=== PATIENT | female | born 1965 | race Caucasian/White ===

== ENCOUNTER 2020-08-17 09:47 | Outpatient (REF) | payer OTHER, SELFPAY ==
[2020-08-17 11:03] LABS: MANUAL DIFF FLAG NO
[2020-08-17 11:10] LABS: Basophils Percent Auto 0.4 % (0-2); Eosinophils Absolute Auto 0.1 X10*3/uL (0.0-0.4); Eosinophils Percent Auto 1.9 % (0-4); Hematocrit 37.2 % (37-47); Hemoglobin 11.3 g/dl (12.0-16.0); Imm Gran Abs Auto 0.02 X10*3/uL (0.00-0.03); Imm Gran Pct Auto 0.3 % (0.0-0.4); Lymphocytes Absolute Auto 2.3 X10*3/uL (1.2-4.9); Mean Corpuscular HGB Conc 30.4 g/dl (31.0-35.0); Mean Corpuscular Hemoglobin 23.1 pg (27.0-33.0); Mean Corpuscular Volume 76.1 fL (80-98); Mean Platelet Volume 10.8 fL (9.4-12.3); Monocytes Absolute Auto 0.4 X10*3/uL (0.1-1.2); Monocytes Percent Auto 5.2 % (2-11); Neutrophils Absolute Auto 4.1 X10*3/uL (2.0-8.3); Neutrophils Percent Auto 59.2 % (45-73); Platelet Count 259 X10*3/uL (160-400); Red Blood Count 4.89 X10*6/uL (4.20-5.50); Red Cell Distribution Width 16.1 % (11.0-16.0)
[2020-08-17 11:33] LABS: Alanine Aminotransferase 28 U/L (0-31); Alkaline Phosphatase 127 U/L (39-117); Anion Gap 11 (12-20); Aspartate Amino Transferase 33 U/L (5-31); Bilirubin Total 0.7 mg/dL (0.0-1.0); Blood Urea Nitrogen 10 mg/dL (9-16); Calcium 8.9 mg/dL (8.4-10.2); Carbon Dioxide 26 mmol/L (22-29); Chloride 103 mmol/L (96-108); Cholesterol 165 mg/dL; Estimated Glomerular Filt Rate > 60; Glucose Fasting 228 mg/dL (60-99); HDL Cholesterol 50 mg/dL; LDL Cholesterol Calculated 100 mg/dl; Potassium 4.3 mmol/L (3.3-5.1); Sodium 136 mmol/L (135-145); Total Protein 7.4 g/dL (6.5-8.0); Triglycerides 76 mg/dL
[2020-08-17 11:56] LABS: Vitamin D 25-OH Total 52.4 ng/mL (>30)
[2020-08-17 12:05] LABS: Free T4 (Free Thyroxine) 1.01 ng/dL (0.71-1.85); Thyroid Stimulating Hormone 1.32 uIU/mL (0.32-4.0)
[2020-08-17 16:41] LABS: Estimated Average Glucose 232 mg/dL; Hemoglobin A1c % 9.7 %
[2020-08-18 05:17] LABS: Thyroid Peroxidase Antibodies 2 IU/mL (<9)
== END 2020-08-17 09:48 | disposition home or self-care (01) ==
LOC: HO.HMGCLDS 09:47
PROVIDERS: PCP Internal Medicine; Visit Provider Internal Medicine
DX: Z00.01 Encounter for general adult medical examination with abnormal findings (principal); E03.9 Hypothyroidism, unspecified; E04.1 Nontoxic single thyroid nodule; E55.9 Vitamin D deficiency, unspecified; E04.2 Nontoxic multinodular goiter; R73.01 Impaired fasting glucose; Z78.0 Asymptomatic menopausal state
CPT/HCPCS: 36415; 80053; 80061; 82306; 83036; 84439; 84443; 85025; 86376

== ENCOUNTER 2021-08-18 09:28 | Outpatient (REF) | payer OTHER, SELFPAY ==
--- NOTE | ~2021-08-18 | XR_ITS ---
EXAMINATION: XR SHOULDER, RIGHT CLINICAL INFORMATION: Pain. COMPARISON: None TECHNIQUE: AP external rotation, Grashey, scapular Y, and axillary views of the right shoulder. FINDINGS: The glenohumeral joint space is maintained normal. There is mild loss of right AC joint space. No visible acute fracture, dislocation or subluxation seen. Meals XR/XR shoulder RT min 2V IMPRESSION: No degenerative changes right AC joint.
[2021-08-18 12:05] LABS: Alanine Aminotransferase 15 U/L (0-31); Anion Gap 12 (12-20); Aspartate Amino Transferase 18 U/L (5-31); Blood Urea Nitrogen 10 mg/dL (9-16); Calcium 9.2 mg/dL (8.4-10.2); Carbon Dioxide 26 mmol/L (22-29); Chloride 103 mmol/L (96-108); Cholesterol 168 mg/dL; Estimated Glomerular Filt Rate > 60; Glucose Fasting 206 mg/dL (60-99); HDL Cholesterol 57 mg/dL; LDL Cholesterol Calculated 98 mg/dl; Potassium 4.5 mmol/L (3.3-5.1); Sodium 136 mmol/L (135-145); Triglycerides 65 mg/dL
[2021-08-18 12:12] LABS: Creatinine Urine 131.84 mg/dL; Microalbum/Creatinine Ratio Ur 10.6 ug/mg cr
[2021-08-18 12:15] LABS: Free T4 (Free Thyroxine) 0.86 ng/dL (0.71-1.85); Vitamin D 25-OH Total 27.3 ng/mL (>30)
== END 2021-08-18 09:29 | disposition home or self-care (01) ==
LOC: HO.HMGCLDS 09:28
PROVIDERS: PCP Internal Medicine; Visit Provider Internal Medicine
DX: Z00.01 Encounter for general adult medical examination with abnormal findings (principal); E04.2 Nontoxic multinodular goiter; E11.65 Type 2 diabetes mellitus with hyperglycemia; E55.9 Vitamin D deficiency, unspecified; I10 Essential (primary) hypertension; E03.9 Hypothyroidism, unspecified; M25.511 Pain in right shoulder
CPT/HCPCS: 36415; 73030; 80048; 80061; 82043; 82306; 84439; 84443; 84450; 84460

== ENCOUNTER → 2021-09-28 07:24 | Outpatient (REF) | payer OTHER, SELFPAY ==
--- NOTE | 2021-09-28 07:27 | CA_ITS ---
Transthoracic Echocardiogram Patient (Last, First, Middle): Beatrice Zaidi M Gender: Female Date of : 1965 Age: 56 Procedure Date: 09/28/2021 Procedure Type: Transthoracic Echocardiogram Location: OP Height: 165.1 cm Weight: 85.73 kg BSA: 1.93 m2 Heart Rate: bpm BP: 135 / 85 mmHg [id number] Consultant: VH/OT Referring MD: Betty Cuenca MD Symptoms: R01.1 - Cardiac murmur, unspecified Study Quality: Fair ECG Rhythm: Sinus Conclusions: - The left ventricular systolic function is normal. The calculated ejection fraction is 65% by biplane method. - No obvious valvular pathology seen on this study. Findings Left Ventricle Normal left ventricular cavity size. There is mildly increased left ventricular wall thickness. The left ventricular systolic function is normal. The calculated ejection fraction is 65% by biplane method. There is no evidence of regional wall motion abnormalities. Diastolic function is normal for age. Right Ventricle Normal right ventricular cavity size and systolic function. Atria Both atria are normal in size. Aortic Valve There is a normal trileaflet aortic valve. There is no aortic valve stenosis. There is no aortic valve regurgitation. Mitral Valve The mitral valve appears normal. There is trace mitral valve regurgitation. There is no mitral valve stenosis. Pulmonic Valve The pulmonic valve was not well visualized. Tricuspid Valve There is trace tricuspid valve regurgitation. The pulmonary artery systolic pressure is normal. Great Vessels The aortic annulus, sinuses of valsalva, and asc aorta are normal in size. Venous The inferior vena cava is normal in size and collapses greater than 50% with inspiration. Pericardium/Pleural There is a trivial pericardial effusion. Prior Study Comparison No significant change compared to prior study dated: 07/01/2014. Recommendations, Care & Conclusions No obvious valvular pathology seen on this study. Measurements 2D Linear Measurements IVSd: 1.27 0.6-0.9/0.6-1.0 cm LVIDd: 3.90 3.9-5.3/4.2-5.9 cm LVIDd Index: 2.02 2.4-3.2/2.2-3.1 cm/m2 LVIDs: 2.58 2.0-3.6 cm LVPWd: 1.22 0.7-1.1 cm LA Diam: 3.60 2.7-3.8/3.0-4.0 cm LAIDs Index: 1.87 1.5-2.3 cm/m2 LV Mass: 209.66 67-162/88-224 g LV Mass Index: 108.63 43-95/49-115 g/m2 LVOT Diam: 2.10 3.0+(-)1.3 cm 2D Systolic Function EF 4C: 64.20 >55% EF 2C: 66.00 >55% EF BiP: 65.00 >55% Mitral Valve MV Pk E: 1.04 MV PK A: 0.81 MV Decel Time: 252.00 E/A: 1.30 E'Lateral: 6.64 E'Medial: 6.31 E/E' Med: 16.50 E/E' Lat: 15.70 PHT: 74.00 MVA PHT: 2.97 Decel Villalba: 4.11 Aortic Valve AoV Pk Ayush: 1.81 AoV Mn Ayush: 1.19 AoV VTI: 0.39 AoV Pk Grad: 13.00 Aov Mn Grad: 7.00 KIZZY Cont.VTI: 2.75 LVOT LVOT Pk Ayush: 1.38 LVOT Mn Ayush: 0.88 LVOT VTI: 0.31 LVOT Pk Grad: 8.00 LVOT Mn Grad: 4.00 LVOT Diam: 2.10 LVOT Area: 3.46 Diastolic Function MV Pk E: 1.04 MV Pk A: 0.81 E/A: 1.30 E'Medial: 6.31 E/E' Med: 16.50 E' Laterial: 6.64 E/E' Lat: 15.70 Right Ventricle TAPSE (mm): 24.00 TVS' Ayush: 11.00 Tricuspid Valve TR Pk Ayush: 2.22 TR Pk Grad: 20.00 Great Vessels Aorta Sinus of Valsalva: 30.00 2.0-3.5 cm Ao Asc: 3.30 2.1-3.4 cm Ao Arch: 3.00 Pulmonary Valve PV Pk Ayush: 0.98 Peak PV Grad: 4.00 Updated in Other Vendor System with Status of Final Grant Mendoza MD electronically signed on 09/29/2021 11:48:24 AM with status of Final
== END ==
LOC: HO.CARD 07:24
PROVIDERS: PCP Internal Medicine; Visit Provider Internal Medicine
DX: R01.1 Cardiac murmur, unspecified (principal)
CPT/HCPCS: 93306

== ENCOUNTER → 2021-11-17 07:49 | Outpatient (BNVA) | payer OTHER, SELFPAY | PROVIDERS: PCP Internal Medicine; Visit Provider Internal Medicine Endocrinology, Diabetes & Metabolism | DX: E11.65 Type 2 diabetes mellitus with hyperglycemia (principal); E04.2 Nontoxic multinodular goiter | CPT/HCPCS: 82947; 83036 ==

== ENCOUNTER → 2022-01-11 09:26 | Outpatient (BNVA) | payer OTHER, SELFPAY | PROVIDERS: PCP Internal Medicine; Visit Provider Dietitian, Registered | DX: E11.65 Type 2 diabetes mellitus with hyperglycemia (principal) | CPT/HCPCS: 97802 ==

== ENCOUNTER 2022-02-17 12:51 | Outpatient (REF) | payer OTHER, SELFPAY ==
--- NOTE | ~2022-02-17 | US_ITS ---
EXAMINATION: US THYROID CLINICAL INFORMATION: Nontoxic single thyroid nodule. COMPARISON: Thyroid ultrasound 01/16/2018 and 12/29/2016. Ultrasound-guided thyroid biopsy 01/13/2017. TECHNIQUE: Linear transducer grayscale and color Doppler examination with attention to the region of the thyroid. FINDINGS: SIZE: Measurements of the solitary right lobe and nodules are given in sagittal, anteroposterior and transverse dimensions respectively. Right Thyroid Lobe: 5.4 x 1.5 x 1.5 cm, volume 6.0 mL. Previously 4.6 x 1.4 x 1.4 cm, volume 4.7 mL. Parenchyma: The gland echotexture is homogeneous. Thyroid vascularity is normal. Left Thyroid Lobe: Surgically absent. Isthmus: 0.5 cm in maximum AP dimension. Previously 0.4 cm. Estimated total number of nodules greater than or equal to 1 cm: 0. Resort Manager nodules are described as follows: 1. Location: Right mid pole. Size: 0.7 x 0.4 x 0.7 cm, volume 0.11 mL. Previously: 0.5 x 0.4 x 0.5 cm, volume 0.05 mL. Nodule characteristics: Composition: Cystic(0). ACR TI-RADS total points: 0 ACR TI-RADS category: 1 LEFT THYROIDECTOMY BED: NODES: No lymphadenopathy is seen in the tissue surrounding the thyroid gland. US/US thyroid IMPRESSION: Slight interval increase in size in the small solitary right thyroid nodule. The left lobe is surgically absent. ACR TI-RADS RECOMMENDATION REFERENCE: Ultrasound-guided fine-needle aspiration, followup ultrasound, no further follow up. * TR1 (0 point) and TR 2 (2 points): No FNA or follow up * TR3 (3 points): FNA if more than or equal to 2.5 cm in maximum dimension, followup ultrasound in 1, 3 and 5 years if 1.5 to 2.4 cm in maximum dimension. * TR4 (4-6 points): FNA if more than or equal to 1.5 cm in maximum dimension, followup ultrasound in 1, 2, 3 and 5 years if 1 to 1.4 cm in maximum dimension. * TR5 (more than or equal to 7 points): FNA if more than or equal to 1 cm in maximum dimension, followup ultrasound every year for 5 years if 0.5 to 0.9 cm in maximum dimension. * TR3, TR4 or TR5 nodules that are below the size threshold for follow up receive no follow up.
== END 2022-02-17 12:52 | disposition home or self-care (01) ==
LOC: HO.HMGCX 12:51
PROVIDERS: PCP Internal Medicine; Visit Provider Internal Medicine
DX: E04.1 Nontoxic single thyroid nodule (principal)
CPT/HCPCS: 76536

== ENCOUNTER 2024-02-23 15:00 | Outpatient (AMB) | payer OTHER, SELFPAY ==
--- NOTE | 2024-02-23 15:05 | MHC.OFFVIS ---
Vital Signs 02/23/24 15:10 Height 5 ft 5 in Weight 202 lb 9.677 oz BMI 33.7 BP 150/90 H Blood Pressure Location Rt brachial Position Sitting Pulse 79 Pulse Source Pulse Oximeter Intake Visit Reasons: T2DM/LVM Intake Note: New patient present today for Diabetes Mellitus. Last Diabetic Eye exam: approx 4 months ago, patient has yearly exam. Last Podiatry Visit: Does not see a Entry Level Civil Engineer Random Glucose: 171 mg/dl HgA1C: 9.0% 02/14/2024 Senior Information Security Analyst Required: No Accompanied by: Self / Same As Patient Allergies adhesive tape Allergy (Verified 02/23/24 15:12) Blister amoxicillin Adverse Reaction (Unknown, Verified 02/23/24 15:12) Abdominal Pain HPI Comments Details: This is a 58-year-old female with a past medical history of type 2 diabetes, hypertension, heart murmur, multinodular thyroid, Narvaez's esophagus, anxiety and insomnia presenting for diabetic management. She was last seen in the endocrinology department in [address] Daniel. Hemoglobin a1c 9% 02/14/2024 POC 171 She needs a new glucometer sent to the pharmacy. When she checks her BG they are in the 170s. She would like CGM. 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 Current medication regimen: previously Metformin 1000 mg twice daily. She self discontinued this. She was concerned about fdc effects and side effects she read about online. She was able to keep her diabetes under control with diet and exercise for some time. She maintains the same lifestyle and is frustrated she cannot lose weight and BGs are elevated. She has attempted a low carbohydrate diet with biking and walking for more than 6 months, and she has been unable to lose weight. Diet: Breakfast-whole wheat test with peanut butter and banana Lunch-chicken on salad, wrap with chicken Dinner-protein and vegetables Snacks/desserts: berries, snap peas Exercise: bikes and walks Occasional alcohol nonsmoker Hypoglycemia symptoms: denies Hyperglycemia symptoms: polydipsia Eye exam: up to date- Dr. Chaudhary in [place] Microvascular complications: none Macrovascular complications: none Elevated blood pressure today-no history of hypertension medications. ROS: Eyes: No vision changes, blurry vision, double vision Respiratory: No shortness of breath Cardiovascular: No chest pain Gastrointestinal: No anorexia, nausea, vomiting or diarrhea. No abdominal pain Neurologic: No headache, dizziness, syncope, unilateral weakness, ataxia, numbness or tingling in the extremities. Endocrine: No cold or heat intolerance. No polyuria Physical exam: Constitutional: Alert, in no distress. Eyes: Extraocular muscles intact. Neck: Supple, Full range of motion. No lymphadenopathy. No palpable thyroid masses. Respiratory: Clear to auscultation. Cardiovascular: S1 S2 regular. II/ systolic murmur. Right foot: Warm and well perfused. No clubbing, cyanosis or edema. DP pulse 3+. Intact vibratory sensation. Intact sensation to monofilament. Left foot: Warm and well perfused. No clubbing, cyanosis or edema. DP pulse 3+. Intact vibratory sensation. Intact sensation to monofilament. [facility] Medical History (Updated 02/23/24 @ 16:25 by KIRAN Garcia) Plantar fasciitis Heart murmur, systolic Right thyroid nodule Diabetes mellitus with hyperglycemia, without long-term current use of insulin Nontoxic multinodular goiter Thyroid nodule Insomnia Essential hypertension Barretts esophagus Hiatal hernia Vitamin D deficiency Elevated blood pressure reading Sleep difficulties Anxiety Surgical History (Updated 02/23/24 @ 15:13 by Stephanie Og Shoaib) Hx of knee surgery H/O partial thyroidectomy Hx of colonoscopy Hx of inguinal hernia repair History of Family History (Updated 11/17/21 @ 09:02 by ONEIL Tarango) Mother Colon cancer Hypertension Myocardial infarct Mental health disorder Other Thyroid disease Social History Housing: Condominium Alcohol intake: current Patient Tobacco Use Status: Never used Tobacco e-Cigarette/Vaping Use: Never Used service: No Current occupational status: employed Results Reviewed Results Reviewed: Laboratory Tests External labs dated 02/14/2024 TSH 2.0 T4, free 1.19 Creatinine 0.72 Estimated GFR 97 Glucose 170 AST 30 ALT 28 Alk-phos 107 Total cholesterol 165 Triglycerides 69 HDL cholesterol 58 LDL cholesterol 94 Hemoglobin A1c 9% 08/18/21 08/18/21 11/17/21 08:44 09:32 08:31 Creatinine 0.74 Estimated GFR > 60 Hgb A1c (Clinic) 8.3 H 6.9 H Triglycerides 65 Cholesterol 168 LDL Cholesterol, Calc 98 HDL Cholesterol 57 Urine Creatinine 131.84 Urine Microalbumin 14.0 Microalb/Creat Ratio 10.6 Assessment & Plan Assessment & Plan (1) Diabetes mellitus with hyperglycemia, without long-term current use of insulin: Code(s): E11.65 - Type 2 diabetes mellitus with hyperglycemia Category: Medical Qualifiers: Diabetes mellitus type: type 2 Qualified Code(s): E11.65 - Type 2 diabetes mellitus with hyperglycemia (2) Elevated blood pressure reading: Code(s): R03.0 - Elevated blood-pressure reading, without diagnosis of hypertension Category: Medical (3) Obesity: Code(s): E66.9 - Obesity, unspecified Qualifiers: Obesity type: due to excess calories Obesity classification: adult class 1 (BMI 30 - 34.9) Serious obesity comorbidity presence: with serious comorbidity Body mass index: BMI 33.0-33.9 Qualified Code(s): E66.09 - Other obesity due to excess calories; Z68.33 - Body mass index [BMI] 33.0-33.9, adult Plan In summary this is a 58 year old female with poorly controlled type 2 diabetes on no antidiabetic medications currently. She is not comfortable restarting Metformin due to potential adverse effects. Given obesity GLP1 will be of greater benefit to her since she has been unable to lose weight despite more than 6 months of lifestyle modifications. Recent TSH normal. The patient denies contraindications to GLP-1 receptor agonist. We reviewed the FDA preliminary evaluation that has not found evidence that these medications cause suicidal thoughts or actions, but the investigation is ongoing. If the patient develops these symptoms they will stop taking the medication immediately and contact the office. We reviewed more common side effects such as bloating, constipation, nausea and vomiting. We reviewed the administration and dosing schedule. The patient is instructed to continue lifestyle modifications and efforts at weight loss. We discussed how weight loss can cause physiologic changes in the body and that some patients may experience hair thinning/hair loss. Sent fingerstick glucometer and CGM. CGM medically necessary in this diabetic patient since she is unable to consistently monitor finger stick glucose levels during her work day. 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 If glucose readings are not in target range or she is not losing weight she will contact me to send Mounjaro 5 mg after the first month on the medication. We discussed indication for statin in diabetic patients to decrease cardiovascular risk. She declines for now stating she does not like to take medications. Given prescription for home blood pressure montior. Bring readings to next appointment. T/C savannah or arb if BP remains above goal. She will have labs done a few days prior to her next appointment scheduled in 3 months for diabetes. Orders: Orders Hemoglobin A1c 10 Weeks E11.65 - Type 2 diabetes mellitus with hyperglycemia Microalbumin, Random (w Creat) 10 Weeks E11.65 - Type 2 diabetes mellitus with hyperglycemia Medications: New blood-glucose sensor (FreeStyle April 3 Sensor device) apply new sensor every 14 days as directed 2 ea 11RF blood-glucose meter (FreeStyle Lite Meter kit) 3 times a day 1 ea 0RF E11.9 - Type 2 diabetes mellitus without complications tirzepatide (Mounjaro) for 4 weeks 2.5 mg (0.5 mL) subcut QWEEK 2 mL 3RF blood-glucose meter,continuous (FreeStyle April 3 [place]) as directed 1 ea 0RF miscellaneous medical supply (Blood Pressure Cuff) As directed 1 ea 0RF blood sugar diagnostic (FreeStyle Lite Strips) As directed to check glucose up to 3 times daily 100 ea 5RF lancets (FreeStyle Lancets) Use as directed to monitor glucose up to 3 times daily 100 ea 5RF Discontinued metformin Discontinued Reason: Doctor's Order 1,000 mg PO BID 30 tabs 5RF Coding Level of Care Code Est Pt Level 5 (32351) Complex EM visit Add On G2211 Diagnoses Type 2 diabetes mellitus with hyperglycemia, without long-term current use of insulin E11.65 Diabetes mellitus type: type 2 Elevated blood pressure reading R03.0 Class 1 obesity due to excess calories with serious comorbidity and body mass index (BMI) of 33.0 to 33.9 in adult E66.09; Z68.33 Obesity type: due to excess calories Obesity classification: adult class 1 (BMI 30 - 34.9) Serious obesity comorbidity presence: with serious comorbidity Body mass index: BMI 33.0-33.9 Time Spent (min) 55 Comment reviewing chart/labs, direct patient care, completing documentation
[2024-02-23 15:10] VITALS: BP 150/90; PULSE 79; BMI 33.7
[2024-02-23 15:27] LABS: Glucose, Whole Blood 171 mg/dL (60-115)
== END 2024-02-23 16:12 | disposition home or self-care (01) ==
PROVIDERS: PCP Internal Medicine; Visit Provider Physician Assistant Medical
DX: E11.65 Type 2 diabetes mellitus with hyperglycemia (principal); R03.0 Elevated blood-pressure reading, without diagnosis of hypertension; E66.09 Other obesity due to excess calories; Z68.33 Body mass index [BMI] 33.0-33.9, adult
CPT/HCPCS: 99215; 99417

== ENCOUNTER → 2024-02-23 15:00 | Outpatient (BNVA) | payer OTHER, SELFPAY | PROVIDERS: PCP Internal Medicine; Visit Provider Physician Assistant Medical | DX: E11.65 Type 2 diabetes mellitus with hyperglycemia (principal); R03.0 Elevated blood-pressure reading, without diagnosis of hypertension; E66.09 Other obesity due to excess calories; Z68.33 Body mass index [BMI] 33.0-33.9, adult | CPT/HCPCS: 82947 ==

== ENCOUNTER 2024-05-28 15:50 | Outpatient (AMB) | payer OTHER, SELFPAY ==
--- NOTE | 2024-05-28 15:53 | MHC.OFFVIS ---
Vital Signs 05/28/24 15:57 05/28/24 16:40 Height 5 ft 5 in Weight 188 lb 7.924 oz BMI 31.4 BP 154/84 H 142/84 H Blood Pressure Location Lt brachial Position Sitting Pulse 86 Pulse Source Pulse Oximeter Intake Visit Reasons: DM/LVM Intake Note: Patient present today to follow up on Type 2 Diabetes Mellitus. Last Diabetic Eye exam: within the year, has an upcoming appt Aug 2024. Last Podiatry Visit: Does not see a Independent Jeweler Random Glucose: 186 mg/dl HgA1C: 6.7% 05/28/24 Paper Ruler Required: No Accompanied by: Self / Same As Patient Allergies adhesive tape Allergy (Verified 05/28/24 15:58) Blister amoxicillin Adverse Reaction (Unknown, Verified 05/28/24 15:58) Abdominal Pain HPI Comments Details: This is a 59-year-old female with a past medical history of type 2 diabetes, hypertension, heart murmur, multinodular thyroid, Narvaez's esophagus, anxiety and insomnia presenting for diabetic management. Hemoglobin a1c 9% 02/14/2024. Today 05/28/24 it is 6.7%. She's lost 14 pounds since her visit with me in January. We reviewed her April 3 download dated 05/15/2024 to 05/28/2024 CGM active 98% Average glucose 155 GMI 7% Glucose variability 15.3% Target range 85% 0% hypoglycemia 0% above 250 15% 181-250 Current medication regimen:None. Previously took metformin. She self discontinued due to concerns about long-term side effects. Insurance did not cover GLP 1. Patient said she will increase exercise, and she is proud of herself for the dietary changes she made. She says it is all because of the April 3. She calls it ?big brother. Patient does endorse menopausal symptoms including fatigue, disrupted sleep, vaginal dryness, joint aches. She is taking glucosamine chondroitin. She has tried sleep hygiene, hydroxyzine, melatonin and magnesium for sleep without success. Her blood pressure is elevated today though it did improve and I rechecked it. She believes it is due to office hypertension. She lost the prescription for the blood pressure that I gave her. I asked if she has been tested for sleep apnea when she said she snores. She said she was diagnosed with moderate sleep apnea in the past, but she was never treated for it. Denies witnessed apneic episodes. Hypoglycemia symptoms: denies Hyperglycemia symptoms: denies Eye exam: up to date- Dr. Chaudhary in [place] Microvascular complications: none Macrovascular complications: none ROS: Eyes: No vision changes, blurry vision, double vision Respiratory: No shortness of breath Cardiovascular: No chest pain Gastrointestinal: No anorexia, nausea, vomiting or diarrhea. No abdominal pain Neurologic: No headache, dizziness, syncope, unilateral weakness, ataxia, numbness or tingling in the extremities. Endocrine: No cold or heat intolerance. No polyuria Physical exam: Constitutional: Alert, in no distress. Eyes: Extraocular muscles intact. Neck: Supple, Full range of motion. No lymphadenopathy. No palpable thyroid masses. Respiratory: Clear to auscultation. Cardiovascular: S1 S2 regular. II/ systolic murmur. [facility] Medical History (Updated 05/28/24 @ 16:59 by KIRAN Garcia) Controlled type 2 diabetes mellitus Menopausal symptoms Plantar fasciitis Heart murmur, systolic Right thyroid nodule Diabetes mellitus with hyperglycemia, without long-term current use of insulin Nontoxic multinodular goiter Thyroid nodule Insomnia Essential hypertension Barretts esophagus Hiatal hernia Vitamin D deficiency Elevated blood pressure reading Sleep difficulties Anxiety Surgical History Hx of knee surgery H/O partial thyroidectomy Hx of colonoscopy Hx of inguinal hernia repair History of Family History Mother Colon cancer Hypertension Myocardial infarct Mental health disorder Other Thyroid disease Social History Housing: Condominium Alcohol intake: current Patient Tobacco Use Status: Never used Tobacco e-Cigarette/Vaping Use: Never Used service: No Current occupational status: employed Physical Exam Vital Signs: Last Vital Signs Pulse 86 05/28/24 15:57 BP 154/84 H 05/28/24 15:57 BMI result Body Mass Index 31.4 Office Procedures Glucose Monitoring Details 57192 - Glucose monitoring, continuous-physician I&R Procedure code (CPT) selection complete Results AMB Hemoglobin A1c AMB Hemoglobin A1c 6.7 % Last Edit by VIGNESH Garcia on 05/28/24 16:16 Results Reviewed Results Reviewed: Laboratory Last Values Glucose (Clinic) 186 mg/dL (60-115) H 05/28/24 16:04 Assessment & Plan Assessment & Plan (1) Controlled type 2 diabetes mellitus: Code(s): E11.9 - Type 2 diabetes mellitus without complications Category: Medical Qualifiers: 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 I congratulated her success with lifestyle modifications. She attributes this to using a CGM. Eye exam is scheduled. The patient can continue glucosamine chondroitin. Offered appointment with endocrinology MD here to discuss hormone replacement therapy. If she is interested in topical estrogen therapy recommended follow up with Gynecology. Patient defers both at this time. Recommended increasing exercise. Reviewed sleep hygiene. Trial of trazodone 50 mg nightly as needed. Cautioned about side effects. Advised not to drive or operate heavy machinery when taking this medication. I went ahead and ordered a repeat sleep study. If she has sleep apnea I will refer to sleep Medicine. Patient defers Markos or Arb for hypertension. We discussed that untreated sleep apnea and insomnia may be contributing to this. She will monitor readings at home. Given new prescription for blood pressure cuff. Recommended low-sodium diet and continued efforts at weight loss. Avoid excessive alcohol and decrease caffeine consumption. Follow up in 3 months. Orders: Orders AMB Hemoglobin A1c Today E11.65 - Type 2 diabetes mellitus with hyperglycemia AMB Glucose Monitoring Today E11.9 - Type 2 diabetes mellitus without complications Medications: New trazodone 50 mg PO BEDTIME PRN 30 tabs 0RF sleep Refilled miscellaneous medical supply (Blood Pressure Cuff) As directed 1 ea 0RF miscellaneous medical supply (Blood Pressure Cuff) As directed 1 ea 0RF Discontinued hydroxyzine HCl Discontinued Reason: Doctor's Order 10 mg PO BEDTIME PRN 30 tabs 1RF anxiety/ restless sleep Coding Level of Care Code Est Pt Level 5 (06791) Diagnoses Controlled type 2 diabetes mellitus without complication, without long-term current use of insulin E11.9 Diabetes mellitus assisted insulin use: without marine oil terminal superintendent use Diabetes mellitus complication status: without complication Elevated blood pressure reading R03.0 Obesity E66.9 Menopausal symptoms N95.1 CPT Codes Details - CPT: 68295 - Glucose monitoring, continuous-physician I&R ([id number]) Time Spent (min) 47 Comment Chart review, direct patient care, completing documentation
[2024-05-28 15:57] VITALS: BP 154/84; PULSE 86; BMI 31.4
[2024-05-28 16:10] LABS: Glucose, Whole Blood 186 mg/dL (60-115)
[2024-05-28 16:40] VITALS: BP 142/84
== END 2024-05-28 16:46 | disposition home or self-care (01) ==
PROVIDERS: PCP Internal Medicine; Visit Provider Physician Assistant Medical
DX: E11.9 Type 2 diabetes mellitus without complications (principal); R03.0 Elevated blood-pressure reading, without diagnosis of hypertension; E66.9 Obesity, unspecified; N95.1 Menopausal and female climacteric states; E11.65 Type 2 diabetes mellitus with hyperglycemia

== ENCOUNTER → 2024-05-28 15:50 | Outpatient (BNVA) | payer OTHER, SELFPAY | PROVIDERS: PCP Internal Medicine; Visit Provider Physician Assistant Medical | DX: E11.9 Type 2 diabetes mellitus without complications (principal); R03.0 Elevated blood-pressure reading, without diagnosis of hypertension; N95.1 Menopausal and female climacteric states; E66.9 Obesity, unspecified; Z68.31 Body mass index [BMI] 31.0-31.9, adult | CPT/HCPCS: 82947; 83036 ==

== ENCOUNTER → 2024-07-31 16:01 | Outpatient (REF) | payer OTHER, SELFPAY ==
--- OUTSIDE RECORDS SUMMARY | 2024-07-31 17:44 | XMS_ITS | Clinical Summary ---
Author Organization [facility] Address [address] [place] [phone] Phone Care Team Providers Care Operations Manager Assistant Name Role Phone Betty Cuenca MD Primary Care Provider Allergies Active Allergy Reactions Criticality Noted Date Comments Amoxicillin 06/04/2024 Heavy head Latex Hives 06/04/2024 Huge blisters Medications Medication Sig Dispensed Refills Start Date End Date Status omeprazole (PriLOSEC) [address] capsule Take 1 capsule (20 mg total) by mouth 1 (one) time each day. Do not crush or chew. Active fluticasone propionate (FLONASE) 50 mcg/actuation nasal spray Administer 1 spray into each nostril 1 (one) time each day. Shake gently. Before first use, prime pump. After use, clean tip and replace cap. Active loratadine (CLARITIN) 10 mg tablet Take 1 tablet (10 mg total) by mouth 1 (one) time each day. Active traZODone (DESYREL) 50 mg tablet Take 1 tablet (50 mg total) by mouth at bedtime as needed for sleep. 05/28/2024 Active glucosamine-chondr oitin 500-400 mg tablet Take 3 tablets by mouth 1 (one) time each day. 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 Do not crush, chew, or split. 30 tablet 11 06/12/2024 06/12/2025 Active Active Problems No known active problems Encounters Date Type Department Care Team Description 06/13/2024 Telephone Gastroenterology - [address] [place] [address] Chelo Nicole MD 06/12/2024 12:17 PM EST Anesthesia Event Endoscopy [address] [place] [address] River Mullins MD Pierce, Trudy A, CRNA 06/12/2024 11:32 AM EST - 06/12/2024 11:59 PM EST Hospital Encounter Endoscopy [address] [place] [phone] Chelo Nicole MD Spencer, Mark A, MD Personal history of colon polyps, unspecified; Family history of colonic polyps; Family history of malignant neoplasm of digestive organs; Personal history of other diseases of the digestive system Discharge Disposition: Home or Self Care 06/07/2024 Telephone Gastroenterology - [address] [phone] Melida Grimes [place] 06/06/2024 Telephone Gastroenterology - [address] [place] [phone] Shanique Bell MA from Last 3 Months Surgical History Surgery Date Site/Laterality Comments SECTION, LOW TRANSVERSE HERNIA REPAIR Bilateral X2 THYROIDECTOMY Left PARTIAL KNEE SURGERY Right COLONOSCOPY Medical History Medical History Date Comments Hiatal hernia Asthma Inguinal hernia Diabetes mellitus (CMS/HCC) DIET CONTROLLED Family History Medical History Relation Name Comments Colon cancer Maternal Grandfather Colon cancer Mother Relation Name Status Comments Maternal Grandfather Mother Social History Tobacco Use Types Packs/Day Years Used Date Smoking Tobacco: Never Smokeless Tobacco: Never Tobacco Cessation:Counseling Given: Not Answered Alcohol Use Standard Drinks/Week Comments Not Currently 0 (1 standard drink = 0.6 oz pur e alcohol) Interpersonal Safety Answer Date Record ed Physical Abuse 06/12/2024 Verbal Abuse 06/12/2024 Sex and Gender Information Value Date Recorded Sex Assigned at Female 06/12/2024 11:23 AM EST Gender Identity Female 06/12/2024 11:23 AM EST Sexual Orientation Straight 06/12/2024 11 :23 AM EST Job Start Date Occupation Industry Not on file Not on file Not on file Obstetrics History Last Filed Vital Signs Vital Sign Reading Time Taken Comments Blood Pressure 147/88 06/12/2024 1:09 PM EST Pulse 88 06/12/2024 1:09 PM EST Temperature 36.5 ??C (97.7 ??F) 06/12/2024 12:[address] Respiratory Rate 20 06/12/2024 1:09 PM EST Oxygen Saturation 99% 06/12/2024 1:09 PM EST Inhaled Oxygen Concentration - - Weight 82.6 kg (182 lb) 06/12/2024 11:46 AM EST Height 165.1 cm (5' 5 ) 06/12/2024 11:46 AM EST Body Mass Index 30.29 06/12/2024 11:46 AM EST Plan of Treatment Health Maintenance Due Date Last Done Comments Breast Cancer Screening 1965 Hepatitis B Vaccines (1 of 3 - 19+ 3-dose series) 1985 Cervical Cancer Screening: P ap Smear 1987 Zoster Vaccines (1 of 2) 2016 COVID-19 Vaccine (2023-2 5 season) 2024 Influenza Vaccine (#1) 2024 04/07/2020 Depression Screening 04/17/2024 HIV Screening 04/17/2024 Hepatitis C Screening 04/17/2024 Social Influencers of Health Screening 04/17/2024 DTaP,Tdap,and Td Vaccines (2 - Td or Tdap) 02/16/2027 02/16/2017 Colorectal Cancer Screening: Colonoscopy 06/20/2034 06/20/2024, 06/12/2024 HIB Vaccines Aged Out No longer eligi ble based on patient's age to complete this topic HPV Vaccines Aged Out No longer eligi ble based on patient's age to complete this topic Hepatitis A Vaccines Aged Out No long er eligible based on patient's age to complete this topic IPV Vaccines Aged Out No longer eligi ble based on patient's age to complete this topic MMR Vaccines Aged Out No longer eligi ble based on patient's age to complete this topic Meningococcal ACWY Vaccine Aged Out N o longer eligible based on patient's age to complete this topic Pneumococcal Vaccine: Pediatrics (0 to 5 Years) and At-Risk Patients (6 to 64 Years) Aged Out No longer eligible b ased on patient's age to complete this topic RSV Immunization Patients Under 20 months Aged Out No longer eligible b ased on patient's age to complete this topic Varicella Vaccines Aged Out No longer eligible based on patient's age to complete this topic Procedures Procedure Name Priority Date/Time Associated Diagnosis Comments COLONOSCOPY Routine 06/20/2024 1:41 PM EST EGD Routine 06/12/2024 12:48 PM EST Personal history of other diseases of the digestive system COLONOSCOPY Routine 06/12/2024 12:48 PM EST Personal history of colon polyps, unspecified Family history of colonic polyps Family history of malignant neoplasm of digestive organs TISSUE EXAM Routine 06/12/2024 12:26 PM EST Personal history of colon polyps, unspecified Family history of colonic polyps Family history of malignant neoplasm of digestive organs Personal history of other diseases of the digestive system from Last 3 Months Results * COLONOSCOPY (06/20/2024 1:41 PM EST) Only the most recent of2 resultswithin the time period is included. Anatomical Region Laterality Modality Endoscopy Historical Provider GI~PROCEDURE CODI MCBRIDE * EGD Anesthesia - MAC; [facility] ENDOSCOPY (06/12/2024 12:48 PM EST) Anatomical Region Laterality Modality Endoscopy 06/12/2024 12:2 2 PM EST Impressions 06/12/2024 12:31 PM EST - Small hiatal hernia. ? - Esophageal mucosal changes consistent with ? short-segment Narvaez's esophagus. Biopsied. ? - Normal examined duodenum. Recommendation: ?- Continue present medications. ? - Await pathology results. Narrative 06/12/2024 12:31 PM EST GI Patient Name: Beatrice Zaidi Procedure Date: 06/12/2024 12:22 PM Date of : 1965 Age: 59 Gender: Female Note Status: Finalized Attending MD: Chelo Nicole MD, Procedure Date No Time: 06/12/2024 Procedure: ? Upper GI endoscopy Indications: ? Surveillance for malignancy due to personal history of ? Narvaez's esophagus Providers: ? Chelo Nicole MD Referring MD: ?Betty Cuenca MD Medicines: ? Propofol per Anesthesia Complications: ? No immediate complications. Estimated Blood Loss: ? Estimated blood loss: none. Procedure: ? Pre-Anesthesia Assessment: ? - ASA Grade Assessment: II - A patient with mild ? systemic disease. ? After obtaining informed consent, the endoscope was ? passed under direct vision. Throughout the procedure, ? the patient's blood pressure, pulse, and oxygen ? saturations were monitored continuously.The Olympus ? Gastroscope was introduced through the mouth, and ? advanced to the second part of duodenum. The upper GI ? endoscopy was accomplished without difficulty. The ? patient tolerated the procedure well. Findings: ?A small hiatal hernia was present. ? There were esophageal mucosal changes consistent with ? short-segment Narvaez's esophagus present in the ? distal esophagus. The maximum longitudinal extent of ? these mucosal changes was 1 cm in length. Mucosa was ? biopsied with a cold forceps for histology. One ? specimen bottle was sent to pathology. ? The cardia and gastric fundus were normal on ? retroflexion. ? The examined duodenum was normal. Procedure Code(s): ? --- Professional --- ? 14397, Esophagogastroduodenoscopy, flexible, ? transoral; with biopsy, single or multiple Diagnosis Code(s): ? --- Professional --- ? K22.70, Narvaez's esophagus without dysplasia CPT copyright 202 [employer]. All rights reserved. The codes documented in this report are preliminary and upon tobacco sweeper review may be revised to meet current compliance requirements. Chelo Nicole MD 06/12/2024 12:31:04 PM This report has been signed electronically.Chelo Nicole MD Number of Addenda: 0 Note Initiated On: 06/12/2024 12:22 PM Scope In: Scope Out: ? Endoscopy Department at - [address] [place] [address], ? [place] [address] Procedure Note Chelo Nicole MD - 06/12/2024 GI Patient Name: Beatrice Zaidi Procedure Date: 06/12/2024 12:22 PM Date of : 1965 Age: 59 Gender: Female Note Status: Finalized Attending MD: Chelo Nicole MD, Procedure Date No Time: 06/12/2024 Procedure: Upper GI endoscopy Indications: Surveillance for malignancy due to personal historyof Narvaez's esophagus Providers: Chelo Nicole MD Referring MD: Betty Cuenca MD Medicines: Propofol per Anesthesia Complications: No immediate complications. Estimated Blood Loss: Estimated blood loss: none. Procedure: Pre-Anesthesia Assessment: - ASA Grade Assessment: II - A patient with mild systemic disease. After obtaining informed consent, the endoscope was passed under direct vision. Throughout theprocedure, the patient's blood pressure, pulse, and oxygen saturations were monitored continuously.The Olympus Gastroscope was introduced through the mouth, and advanced to the second part of duodenum. The upperGI endoscopy was accomplished without difficulty. The patient tolerated the procedure well. Findings: A small hiatal hernia was present. There were esophageal mucosal changes consistentwith short-segment Narvaez's esophagus present in the distal esophagus. The maximum longitudinal extentof these mucosal changes was 1 cm in length. Mucosawas biopsied with a cold forceps for histology. One specimen bottle was sent to pathology. The cardia and gastric fundus were normal on retroflexion. The examined duodenum was normal. Procedure Code(s): --- Professional --- 08065, Esophagogastroduodenoscopy, flexible, transoral; with biopsy, single or multiple Diagnosis Code(s): --- Professional --- K22.70, Narvaez's esophagus without dysplasia CPT copyright 2020 [employer]. All rights reserved. The codes documented in this report are preliminary and upon tobacco sweeper reviewmay be revised to meet current compliance requirements. Chelo Nicole MD 06/12/2024 12:31:04 PM This report has been signed electronically.Chelo Nicole MD Number of Addenda: 0 Note Initiated On: 06/12/2024 12:22 PM Scope In: Scope Out: Endoscopy Department at - [address] [place] [phone] IMPRESSION: - Small hiatal hernia. 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 Biopsied. - Normal examined duodenum. Recommendation: - Continue present medications. - Await pathology results. Chelo Nicole MD GI~PROCEDURE ORDERAB LES * Tissue exam (06/12/2024 12:26 PM EST) Final Diagnosis Distal esophagus, biopsy: Squamocolumnar junction with intestinal metaplasia (Narvaez esophagus), negative for dysplasia. Esophageal squamous mucosa with occasional intraepithelial eosinophils (maximum of two intraepithelial eosinophils in a high-power field) and reactive epithelial changes. Gastric cardiac type mucosa with patchy chronic inflammation. 06/13/2024 11:00 AM [facility] Gross Description A. Esophagus, distal esophagus biopsy: Labeled distal esophagus . Received in formalin are two soft to friable, white-red tissues, approximately measuring 0.5 cm and 0.6 cm in greatest diameters, which are wrapped in paper and submitted in toto in one cassette, two pieces, multiple levels. dvb/SL 06/13/2024 11:00 AM [facility] Disclaimer Unless otherwise specified, all tissue is 10% NB formalin fixed and paraffin embedded. 06/13/2024 11:00 AM [facility] Tissue Esophageal structure / Unknown 06/12/2024 12:26 PM EST 06/12/2024 2:49 PM EST Chleo Nicole MD LAB PATHOLOGY ORDERA [facility] [address] [place] [address], from Last 3 Months Care Teams Operations Manager Assistant Relationship Specialty Start Date End Date Betty Cuenca MD [address] [place] [address] PCP - General Internal Medicine 06/12/24
--- OUTSIDE RECORDS SUMMARY | 2024-07-31 17:44 | XMS_ITS | Clinical Summary ---
Author Organization [facility] Address [address] [place] [address] Care Team Providers Care Fur Polisher Name Role Phone Pcp, No Primary Care Provider Unavailabl e Allergies Active Allergy Reactions Criticality Noted Date Comments Adhesives/Tape Other (See Comments) 01/01/2018 Surgical tape, blistering Other Other (See Comments) 01/01/2018 Environmental Medications Medication Sig Dispensed Refills Start Date End Date Status fluticasone (FloNASE) 50 mcg/spray nasal spray 1 spray into each nostril daily. Active OMEprazole (PriLOSEC) 10 MG capsule Take 10 mg by mouth daily. Active norethindrone-ethinyl estradiol (07/22) 1-20 MG-MCG per tablet Take 1 tablet by mouth daily. Active Vitamin D3 (CHOLECALICEROL) 2000 units tablet Take 2,000 Units by mouth daily. Active loratadine (CLARITIN) 10 MG tablet Take 10 mg by mouth daily. Active meclizine (ANTIVERT) 25 MG tabletIndications:Radha tigo Take 1 tablet (25 mg total) by mouth 3 (three) times a day as needed for dizziness. 30 tablet 01/01/2018 Active Active Problems No known active problems Social History Tobacco Use Types Packs/Day Years Used Date Smoking Tobacco: Never Smokeless Tobacco: Never Alcohol Use Standard Drinks/Week Comments Yes 0 (1 standard drink = 0.6 oz pur e alcohol) social Sex and Gender Information Value Date Recorded Sex Assigned at Not on file Gender Identity Not on file Sexual Orientation Not on file Last Filed Vital Signs Vital Sign Reading Time Taken Comments Blood Pressure 128/86 01/01/2018 11:15 AM EDT Pulse 71 01/01/2018 11:15 AM EDT Temperature 37.3 ??C (99.1 ??F) 01/01/2018 11:15 AM E DT Respiratory Rate 16 01/01/2018 11:15 AM EDT Oxygen Saturation 98% 01/01/2018 11:15 AM EDT RA Inhaled Oxygen Concentration - - Weight - - Height - - Body Mass Index - - Plan of Treatment Health Maintenance Due Date Last Done Comments Hepatitis C Virus Screening 1966 HIV Screening 1979 DTaP/Tdap/Td Vaccines (1 - Tdap) 1985 Hepatitis B Vaccines (1 of 3 - 19+ 3-dose series) 1985 Pap Smear (Ages 21-65) 1987 Mammogram 2006 Colonoscopy 2011 Pneumococcal Vaccines 50+ (1 of 1 - PCV) 2016 Zoster (Shingles) Vaccine (1 of 2) 2016 Influenza Vaccine 02/01/2024 COVID-19 Vaccine ( - 2023-2 5 season) 2024 Pneumococcal Vaccine: Pediat cristal (0-5 Years) and At-Risk Patients (6 to 49 Years) Aged Out No longer eligible b ased on patient's age to complete this topic Care Teams Fur Polisher Relationship Specialty Start Date End Date Pcp, No PCP - General General Medicine 01/01/18
== END ==
LOC: HO.SL 16:01
PROVIDERS: PCP Internal Medicine; Visit Provider Physician Assistant Medical
DX: G47.30 Sleep apnea, unspecified (principal); G47.10 Hypersomnia, unspecified
CPT/HCPCS: 95806

== ENCOUNTER 2024-08-23 08:51 | Outpatient (AMB) | payer OTHER, SELFPAY ==
[2024-08-23 09:00] VITALS: BP 158/92; PULSE 85; O2SAT 97; BMI 30.9
--- NOTE | 2024-08-23 09:00 | HO.NEPHOV ---
Vital Signs 08/23/24 09:00 Height 5 ft 5 in Weight 186 lb BMI 30.9 BP 158/92 H Blood Pressure Location Lt brachial Position Sitting Pulse 85 Pulse Source Pulse Oximeter Pulse Oximetry (%) 97 Oxygen Delivery Method Room Air Intake Visit Reasons: INP-TAMEKA Emissions Engineer Required: No Accompanied by: Self / Same As Patient Allergies adhesive tape Allergy (Verified 08/23/24 09:05) Blister amoxicillin Adverse Reaction (Unknown, Verified 08/23/24 09:05) Abdominal Pain HPI Comments Details: 59 year old referred to us by her Endo for She says she has insomnia goes to bed at 9pm wakes up at 5am, no bathroom breaks. Managing diabetes by diet and exercise, she tried metformin, and ozempic and failed. Gave up sugar, her A1c used to 9.0, now it is She uses the April sensor, and it helps with changing the eating habits. 3 months she changed her carb intake, and now eating meat and salads, she limited sugar intake. 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 morning headaches daily last for 1 hour 8/10 ethmoid pressure in the sinus, sometimes occipital locally, pulsating, and they go away, wake her up, low sugar sensor is going off, triggers light smelll sound She has allergies magnesium B6 [facility] Medical History Obstructive sleep apnea Hypersomnia Observed sleep apnea Controlled type 2 diabetes mellitus Menopausal symptoms Plantar fasciitis Heart murmur, systolic Right thyroid nodule Diabetes mellitus with hyperglycemia, without long-term current use of insulin Nontoxic multinodular goiter Thyroid nodule Insomnia Essential hypertension Barretts esophagus Hiatal hernia Vitamin D deficiency Elevated blood pressure reading Sleep difficulties Anxiety Surgical History Hx of knee surgery H/O partial thyroidectomy Hx of colonoscopy Hx of inguinal hernia repair History of Family History (Updated 08/23/24 @ 09:08 by VIGNESH Zaidi) Mother Colon cancer Hypertension Myocardial infarct Mental health disorder Sleep apnea Other Thyroid disease Social History Housing: Condominium Alcohol intake: current Patient Tobacco Use Status: Never used Tobacco e-Cigarette/Vaping Use: Never Used service: No Current occupational status: employed Physical Exam Vital Signs: Last Vital Signs Pulse 85 08/23/24 09:00 BP 158/92 H 08/23/24 09:00 Pulse Ox 97 08/23/24 09:00 Oxygen Delivery Method Room Air 08/23/24 09:00 BMI result Body Mass Index 30.9 Results Reviewed Nephrology Results: No Data to Display Coding Sleep Questionnaire Difficulty falling asleep: Yes Difficulty staying asleep?: Yes Number of arousals: 0 Snoring: Yes Witnessed apneas: Yes Gasping arousals: Yes Nocturia: No GERD: Yes Vivid dreams: Yes Acting out dreams: No Abnormal behavior in sleep: No Abnormal movements in sleep: Yes (walking into the kitchen) Morning headaches: Yes
--- OUTSIDE RECORDS SUMMARY | 2024-08-23 09:13 | XMS_ITS | Clinical Summary ---
Author Organization [facility] Address [address] [place] [phone] Phone Care Team Providers Care Maintenance Director Name Role Phone Betty Cuenca MD Primary Care Provider Allergies Active Allergy Reactions Criticality Noted Date Comments Amoxicillin 06/04/2024 Heavy head Latex Hives 06/04/2024 Huge blisters Medications omeprazole (PriLOSEC) [address] capsule Take [...] mouth at bedtime as needed for sleep. 4 Active glucosamine-cho ndroitin 500-400 mg tablet Take 3 tablets by mouth 1 (one) time each day. Active omeprazole OTC (PriLOSEC OTC) 20 mg EC tabletIndicatio ns:Narvaez's esophagus determined by biopsy Take 1 tablet (20 mg total) by mouth 1 (one) time each day. Do not crush, chew, or split. 30 tablet 11 4 06/12/20 25 Active Active Problems No known active problems Encounters Date Type Department Care Team Description 06/13/2024 Telephone Gastroenterology - [address] [phone] Chelo Nicole MD 06/12/2024 12:17 PM EST Anesthesia Event [facility] Endoscopy [address] [place] [address] River Mullins MD Pierce, Trudy A, CRNA 06/12/2024 11:32 AM EST - 06/12/2024 11:59 PM EST Hospital Encounter [facility] Endoscopy [address] [place] [address] Chelo Nicole MD Spencer, Mark A, MD Personal history of colon polyps, unspecified; Family history of colonic polyps; Family history of malignant neoplasm of digestive organs; Personal history of other diseases of the digestive system Discharge Disposition: Home or Self Care 06/07/2024 Telephone Gastroenterology - [address] [phone] Melida Grimes [place] 06/06/2024 Telephone Gastroenterology - [address] [phone] Shanique Bell MA from Last 3 Months [...] ed Physical Abuse 06/12/2024 Verbal Abuse 06/12/2024 Comments No Sex and Gender Information Value Date Recorded Sex Assigned at Female 06/12/2024 11:23 AM EST Legal Sex Female 4:22 AM EST Gender Identity Female 06/12/2024 11:23 AM EST Sexual Orientation Straight 06/12/2024 11 :23 AM EST Obstetrics History Last Filed Vital Signs Vital [...] Cervical Cancer Screening: P ap Smear 1987 Pneumococcal Vaccine: 50+ Years (1 of 1 - PCV) 2016 Zoster Vaccines (1 of 2) 2016 COVID-19 Vaccine ( - 2023-2 5 season) 2024 Influenza Vaccine (#1) 2024 [...] patient's age to complete this topic Meningococcal B Vacine Aged Out No lo nger eligible based on patient's age to complete [...] is included. Anatomical Region Laterality Modality Endoscopy us Historical Provider MD WESTPROCEDURE ORDERABLES F inal Result * EGD Anesthesia - MAC; [facility] ENDOSCOPY (06/12/2024 12:48 PM EST) Anatomical Region Laterality Modality Endoscopy 06/12/2024 12:2 2 PM EST Impressions 06/12/2024 12:31 PM EST - Small hiatal hernia. ? - Esophageal mucosal changes consistent with ? short-segment Narvaez's esophagus. Biopsied. ? - Normal examined duodenum. Recommendation: ?- Continue present medications. ? - Await pathology results. Narrative 06/12/2024 12:31 PM EST [facility] GI Patient Name: Beatrice Zaidi Procedure Date: [...] esophageal mucosal changes consistent with ? short-segment Naravez's esophagus present in the ? distal esophagus. The maximum longitudinal extent of ? these mucosal changes was 1 cm in length. Mucosa was ? biopsied with a cold forceps for histology. One ? specimen bottle was sent to pathology. ? The cardia and gastric fundus were normal on ? retroflexion. ? The examined duodenum was normal. Procedure Code(s): ? --- Professional --- ? 65212, Esophagogastroduodenoscopy, flexible, ? transoral; with biopsy, single or multiple Diagnosis Code(s): ? --- Professional --- ? K22.70, Narvaez's esophagus without dysplasia CPT copyright 2020 [employer]. All rights reserved. The codes documented in this report are preliminary and upon contact lens technician review may be revised to meet current compliance requirements. Chelo Nicole MD 06/12/2024 12:31:04 PM This report has been signed electronically.Chelo Nicole MD Number of Addenda: 0 Note Initiated On: 06/12/2024 12:22 PM Scope In: Scope Out: ? Endoscopy Department at [facility] - [address] [place] [address], ? [place] [address] Procedure Note Chelo Nicole MD - 06/12/2024 [facility] GI Patient Name: Beatrice Zaidi Procedure Date: [...] was normal. Procedure Code(s): --- Professional --- 85803, Esophagogastroduodenoscopy, flexible, transoral; with biopsy, single or multiple Diagnosis Code(s): --- Professional --- K22.70, Narvaez's esophagus without dysplasia CPT copyright 2020 [employer]. All rights reserved. The codes documented in this report are preliminary and upon contact lens technician reviewmay be revised to meet current compliance requirements. Chelo Nicole MD 06/12/2024 12:31:04 PM This report has been signed electronically.Chelo Nicole MD Number of Addenda: 0 Note Initiated On: 06/12/2024 12:22 PM Scope In: Scope Out: Endoscopy Department at [facility] - [address] [place] [phone] IMPRESSION: - Small hiatal hernia. 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 Biopsied. - Normal examined duodenum. Recommendation: - Continue present medications. - Await pathology results. Chelo Nicole MD GI~PROCEDURE ORDERABLES Final Result * Tissue exam (06/12/2024 12:26 PM EST) Final Diagnosis Distal esophagus, biopsy: Squamocolumnar junction with intestinal metaplasia (Narvaez esophagus), negative for dysplasia. Esophageal squamous mucosa with occasional intraepithelial eosinophils (maximum of two intraepithelial eosinophils in a high-power field) and reactive epithelial changes. Gastric cardiac type mucosa with patchy chronic inflammation. 06/13/2024 11:[address] [facility] Gross Description A. Esophagus, distal esophagus biopsy: Labeled distal esophagus . Received in formalin are two soft to friable, white-red tissues, approximately measuring 0.5 cm and 0.6 cm in greatest diameters, which are wrapped in paper and submitted in toto in one cassette, two pieces, multiple levels. dvb/SL 06/13/2024 11:[address] [facility] Disclaimer Unless otherwise specified, all tissue is 10% NB formalin fixed and paraffin embedded. 06/13/2024 11:00 AM [facility] Tissue Esophageal structure / Unknown 06/12/2024 12:26 PM EST 06/12/2024 2:49 PM EST us Chelo Nicole MD LAB PATHOLOGY ORDERABLES Final Result [facility] [address] [place] [address], from Last 3 Months Insurance [id number] [place] [id number] [facility] Care Teams Maintenance Director Relationship Specialty Start Date End Date Betty Cuenca MD [address] [place] [address] PCP - General Internal Medicine 06/12/24
[2024-08-23 09:57] VITALS: BMI 30.9
--- NOTE | 2024-08-23 09:57 | MHC.OFFVIS ---
Vital Signs 08/23/24 09:00 08/23/24 09:57 Height 5 ft 5 in Weight 186 lb BMI 30.9 30.9 BP 158/92 H Blood Pressure Location Lt brachial Position Sitting Pulse 85 Pulse Source Pulse Oximeter Pulse Oximetry (%) 97 Oxygen Delivery Method Room Air Intake Visit Reasons: INP-TAMEKA Allergies adhesive tape Allergy (Verified 08/23/24 09:05) Blister amoxicillin Adverse Reaction (Unknown, Verified 08/23/24 09:05) Abdominal Pain HPI Comments Details: 59 year old patient is referred to us by her Dye Range Tender for hypersomnia. She wakes up tired daily, goes to bed at 9pm and wakes up at 5am with zero bathroom breaks. She has had insomnia most of her life, and tried Melatonin, Ambien, Lunesta, Unisom. She snores, gasps for air and has witnessed apneas according to her partner. She talks in her sleep and walks down to the kitchen then wakes up. She has daily morning headaches which last 1 hour, r. sided occipital, pulsating and 8/10 in severity, sometimes the pain is so severe that she is awaken from her sleep. She does have sinus issues and seasonal allergies. She is sensitive to lights, sounds, smells, denies dizziness and vertigo. She denies RLS and cramps, she had R. knee arthroscopy and has some pain in that joint. She has diabetes and is managing her HgA1c with strict diet and exercise, she tried Ozempic and Metformin, but could not tolerate them. She has white coat syndrome and her bp is normal at home as she monitors it 3x a week and doesn't wish to start medications. 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 [facility] Medical History Obstructive sleep apnea Hypersomnia Observed sleep apnea Controlled type 2 diabetes mellitus Menopausal symptoms Plantar fasciitis Heart murmur, systolic Right thyroid nodule Diabetes mellitus with hyperglycemia, without long-term current use of insulin Nontoxic multinodular goiter Thyroid nodule Insomnia Essential hypertension Barretts esophagus Hiatal hernia Vitamin D deficiency Elevated blood pressure reading Sleep difficulties Anxiety Surgical History Hx of knee surgery H/O partial thyroidectomy Hx of colonoscopy Hx of inguinal hernia repair History of Family History Mother Colon cancer Hypertension Myocardial infarct Mental health disorder Sleep apnea Other Thyroid disease Social History Housing: [facility] Alcohol intake: current Patient Tobacco Use Status: Never used Tobacco e-Cigarette/Vaping Use: Never Used service: No Current occupational status: employed Review of Systems Const All systems reviewed & are unremarkable except as noted in HPI and below Physical Exam Vital Signs: Last Vital Signs Pulse 85 08/23/24 09:00 BP 158/92 H 08/23/24 09:00 Pulse Ox 97 08/23/24 09:00 Oxygen Delivery Method Room Air 08/23/24 09:00 BMI result Body Mass Index 30.9 Const General: cooperative, comfortable and no acute distress Nutritional Appearance: obese Orientation/consciousness: patient oriented x3 HEENT Face and sinus: Yes normal facial exam and Yes face symmetric Throat: Yes other (Mallampti score of 4) Eyes Pupils: Equal, round and reactive pupils present Neck Neck: Yes full ROM Resp Effort & Inspection: normal respiratory effort and able to speak in complete sentences Neuro General: patient oriented x3, gait normal and moves all extremities Cranial nerves: Yes CN's II-XII intact bilaterally, Yes Facial sensation intact/muscles of mastication intact, Yes Equal, round and reactive pupils present, Yes Normal accommodation reflex present, Yes Bilaterally intact EOM present, Yes Nystagmus not present, Yes Normal facial strength present, Yes Midline tongue present, Yes Symmetric palate elevation present, Yes Ability to bilaterally rotate head present and Yes Ability to bilaterally elevate shoulders present Cognition (Neuro): normal cognition Gait exam (Neuro): Normal gait present Motor exam (neuro): 5/5 motor strength present throughout and Normal motor muscle tone present throughout Deep tendon reflexes (DTR's): Right triceps reflex intensity grade: 2+, Left triceps reflex intensity grade: 2+, Rt Biceps (C5, C6): 2+, Left biceps reflex intensity grade: 2+, Right brachioradialis reflex intensity grade: 2+, Left brachioradialis reflex intensity grade: 2+, Right patellar reflex intensity grade: 2+ and Left patellar reflex intensity grade: 2+ Psych Appearance: grossly normal Affect: normal affect Attitude: cooperative Thought process: Normal thought process present Assessment & Plan Assessment & Plan (1) Hypersomnia: Code(s): G47.10 - Hypersomnia, unspecified Category: Medical (2) Headaches, cluster: Code(s): G44.009 - Cluster headache syndrome, unspecified, not intractable Category: Medical Qualifiers: Headache chronicity pattern: chronic headache Intractability: intractable Qualified Code(s): G44.021 - Chronic cluster headache, intractable Plan Labs to r/o deficiencies TSH is normal/ B12 is normal, Vit D is deficient. will do an Iron panel with Ferritin, Folate, Homocysteine and MMA. CPAP machine and supplies for Obstructive Sleep apnea. Headaches, mild and resolve, will monitor Will f/u in 3 months. Medications: New pyridoxine (vitamin B6) take one tablet a night 250 mg PO DAILY 30 tabs 5RF nerves MDD 250mg G47.10 - Hypersomnia, unspecified Patient Instructions: Take one tablet of magnesium 400mg PO at bedtime. Take one tablet of B6/Pyridoxine daily at bedtime. Sleep Hygiene provided, sleep in a dark cool environment no devices in bed. May read a book if unable to fall asleep, diffuse essential oils or play soft music. Gentle yoga or stretching as needed. Continue control blood sugars with diet and lifestyle changes, drink plenty of water daily and walk for 30 min daily. Chronic Daily Morning Mild Headaches recommend drinking plenty of water and using a migraine cap as patient does not want to take meds at this time. Coding Level of Care Code New Pt Level 4 (81276) Diagnoses Hypersomnia G47.10 Intractable chronic cluster headache G44.021 Headache chronicity pattern: chronic headache Intractability: intractable Sleep Questionnaire Difficulty falling asleep: Yes Difficulty staying asleep?: Yes Number of arousals: 1 Snoring: Yes Witnessed apneas: Yes Gasping arousals: Yes Nocturia: No GERD: Yes Vivid dreams: Yes Acting out dreams: Yes Abnormal behavior in sleep: Yes Abnormal movements in sleep: Yes Morning headaches: Yes Excessive daytime sleepiness: Yes Daytime naps: Yes Restless legs: No Hallucinations: No Sleep paralysis: No Drop attacks: No Sleep Study: Yes CPAP: No
== END 2024-08-23 10:11 | disposition home or self-care (01) ==
PROVIDERS: PCP Internal Medicine; Visit Provider Physician Assistant Medical
DX: G47.10 Hypersomnia, unspecified (principal); G44.021 Chronic cluster headache, intractable
CPT/HCPCS: 99204

== ENCOUNTER → 2024-08-23 08:51 | Outpatient (BNVA) | payer OTHER, SELFPAY | PROVIDERS: PCP Internal Medicine; Visit Provider Physician Assistant Medical ==

== ENCOUNTER 2024-11-21 15:10 | Outpatient (AMB) | payer OTHER, SELFPAY ==
--- OUTSIDE RECORDS SUMMARY | 2024-11-21 15:13 | XMS_ITS | Clinical Summary ---
Author Organization [facility] Address [address] [place] [address] Care Team Providers Care Subwarehouse Supervisor Name Role Phone Pcp, No Primary Care Provider Unavailabl e Allergies Active Allergy Reactions Criticality Noted Date Comments Adhesives/Tape Other (See Comments) 01/01/2018 Surgical tape, blistering Other Other (See Comments) 01/01/2018 Environmental Medications fluticasone (FloNASE) 50 mcg/spray nasal spray 1 spray into each nostril daily. Active OMEprazole (PriLOSEC) 10 MG capsule Take 10 mg by mouth daily. Active norethindrone-e thinyl estradiol (07/22) 1-20 MG-MCG per tablet Take 1 tablet by mouth daily. Active Vitamin D3 (CHOLECALICEROL ) 2000 units tablet Take 2,000 Units by mouth daily. Active loratadine (CLARITIN) 10 MG tablet Take 10 mg by mouth daily. Active meclizine (ANTIVERT) 25 MG tabletIndicatio ns:Vertigo Take 1 tablet (25 mg total) by mouth 3 (three) times a day as needed for dizziness. 30 tablet 01/01/2018 Active Active Problems No known active problems Social History Tobacco Use Types Packs/Day Years Used Date Smoking Tobacco: Never Smokeless Tobacco: Never Alcohol Use Standard Drinks/Week Comments Yes 0 (1 standard drink = 0.6 oz pur e alcohol) social Comments No Sex and Gender Information Value Date Recorded Sex Assigned at Not on file Legal Sex Female 10:57 AM EDT Gender Identity Not on file Sexual Orientation [...] (1 of 3 - 19+ 3-dose series) 02/02 Pap Smear (Ages 21-65) 1987 Mammogram 2006 Colonoscopy 2011 Pneumococcal Vaccines 50+ (1 of 1 - PCV) 2016 Zoster (Shingles) Vaccine (1 of 2) 2016 COVID-19 Vaccine (1 - 2023- season) 2024 Influenza Vaccine 01/31/2025 Insurance Care Teams Subwarehouse Supervisor Relationship Specialty Start Date End Date Pcp, No PCP - General General Medicine 01/01/18
--- NOTE | 2024-11-21 15:20 | MHC.OFFVIS ---
Vital Signs 11/21/24 15:21 Height 5 ft 5 in Weight 185 lb 6 oz BMI 30.8 BP 148/98 H Blood Pressure Location Lt brachial Position Sitting Pulse 86 Pulse Source Pulse Oximeter Intake Visit Reasons: 3 mo follow up Intake Note: Patient presents follow up Sleep/migraine. Compliance in chart(16/ days, >=4hrs-10 days, Median pressure- 7.3, Median Leaks-0.1, AHI-1.2). Allergy are bad and having hard time with CPAP. States during the night she tries to rip off the mask. Allergies adhesive tape Allergy (Verified 11/21/24 15:24) Blister amoxicillin Adverse Reaction (Unknown, Verified 11/21/24 15:24) Abdominal Pain HPI Comments Details: 59 year old patient is referred to us by her Glass Science Engineer for hypersomnia. HST AH1 14 oxygen desat to 79% and below 88% for 15min, snoring was 5% of sleep. 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 She wakes up tired daily, goes to bed at 9m and gets up at 5am with one bathroom break most nights. 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 She has tried Melatonin, Ambien, Lunesta, and Unisom for sleep, nothing but trazadone has helped her sleep. She snores, gasps for air and has witnessed apneas according to her partner. She admits to having a h/o parasomnias since childhood, she talks in her sleep will walk into the kitchen then wake up. Her dreams are intense and she feels as though she is really there. She was recently diagnosed with T2DM her A1c is 6.7 now and improved since her last check with [facility]. She was trialed on metformin and ozempic, but could not tolerate it. She has hypertension and her bp has always been elevated in clinic, however she says they are 130/84 at home. Today they 140/90 in the beginning of the clinic and 180/100 at the end of the visit. Migraines She says her headaches have improved since the last visit now 2-3 times a week, and 8/10 in severity they last about 1 hour in the morning are r. sided occipital, pulsating and sometimes so severe they wake her up from sleep. She has photophobia/ phonophobia, sesitivity to smells, she denies vertigo, nausea and dizziness. She denies Auras. Vision is stable. She denies RLS and cramps, she had R. knee arthroscopy and has some pain in that joint. She bikes for 30 min daily and does not like to drink water, we discussed improving her water intake as it will help to lower her blood pressure. Memory is stable and mood is irritable at baseline, she has anxiety is a worry wart and is going through menopause. She does not drink alcohol or smoke. [facility] Medical History Obstructive sleep apnea Hypersomnia Observed sleep apnea Controlled type 2 diabetes mellitus Menopausal symptoms Plantar fasciitis Heart murmur, systolic Right thyroid nodule Diabetes mellitus with hyperglycemia, without long-term current use of insulin Nontoxic multinodular goiter Thyroid nodule Insomnia Essential hypertension Barretts esophagus Hiatal hernia Vitamin D deficiency Elevated blood pressure reading Sleep difficulties Anxiety Surgical History Hx of knee surgery H/O partial thyroidectomy Hx of colonoscopy Hx of inguinal hernia repair History of Family History Mother Colon cancer Hypertension Myocardial infarct Mental health disorder Sleep apnea Other Thyroid disease Social History Housing: Condominium Alcohol intake: current Patient Tobacco Use Status: Never used Tobacco e-Cigarette/Vaping Use: Never Used service: No Current occupational status: employed Physical Exam Vital Signs: Last Vital Signs Pulse 86 11/21/24 15:21 BP 148/98 H 11/21/24 15:21 BMI result Body Mass Index 30.8 Const General: cooperative, no acute distress and tired appearing Nutritional Appearance: average body habitus Orientation/consciousness: patient oriented x3 HEENT Face and sinus: Yes face symmetric Teeth and gingiva: other (Mallampti score is 4) Eyes Pupils: Equal, round and reactive pupils present Neck Neck: Yes full ROM Resp Effort & Inspection: normal respiratory effort and able to speak in complete sentences Neuro General: patient oriented x3 and moves all extremities Cranial nerves: Yes Facial sensation intact/muscles of mastication intact, Yes Equal, round and reactive pupils present, Yes Normal accommodation reflex present, Yes Nystagmus not present, Yes Normal facial strength present, Yes Midline tongue present, Yes Ability to bilaterally rotate head present and Yes Ability to bilaterally elevate shoulders present Gait exam (Neuro): Normal gait present Motor exam (neuro): 5/5 motor strength present throughout and Normal motor muscle tone present throughout Psych Appearance: grossly normal Thought process: Normal thought process present Thought content: Normal thought content present Results Reviewed Results Reviewed: Labs reviewed with pt from [facility] abe A1c is elevated and vit d is low, she is taking a vit d supplement. HST c/w moderate sleep apnea AHI is 14 oxygen jeanine to 79% and below 88% for 15min with nocturnal hypoxemia and snoring. Assessment & Plan Assessment & Plan (1) Insomnia: Code(s): G47.00 - Insomnia, unspecified Category: Medical Qualifiers: Insomnia type: primary Qualified Code(s): F51.01 - Primary insomnia (2) Obstructive sleep apnea: Code(s): G47.33 - Obstructive sleep apnea (adult) (pediatric) Category: Medical (3) Headaches, cluster: Code(s): G44.009 - Cluster headache syndrome, unspecified, not intractable Category: Medical Qualifiers: Headache chronicity pattern: chronic headache Intractability: intractable Qualified Code(s): G44.021 - Chronic cluster headache, intractable Plan Insomnia /TAMEKA HST c/w tameka moderate, snoring and nocturnal hypoxemia, will send for PSG to evaluate. CPAP ordered and mask is not comfortable will send her for mask fitting and f/u for compliance. Parasomnias will send for PSG and f/u with oximetry for hypoxemia. Labs scanned in from [facility] and reviewed with patient today TSH/ B12 is normal she is taking a vit D supplement daily. Iron panel with Ferritin, Folate, Homocysteine and MMA, is pending. Daily Migraines patient declines medications today, continue using migraine cap and peppermint oil as needed on the temples, for allergies use nasal saline and flonase every other day. Start magnesium 400mg po daily, b6 for nerves 200mg po daily at bedtime. Mood irritability Psychology today, certified sleep specialist. Will f/u in 4 months. Orders: Orders RT PSG in-lab sleep study Today F51.01 - Primary insomnia, G47.33 - Obstructive sleep apnea (adult) (pediatric) Overnight Pulse Oximetry Today G44.021 - Chronic cluster headache, intractable, G47.33 - Obstructive sleep apnea (adult) (pediatric) Patient Instructions: Sleep Hygiene provided: set a scheduled bedtime and wake time to help regulate the circadian rhythm and balance the release of pituitary hormones. Sleep in a dark room, temperatures below 68 degrees, and no devices n bed. Limit caffeinated products 6 hours prior to bed, and limit fluids 2-4 hours prior to bed. Gentle night yoga, diffusing essential oils, and playing soft music can be relaxing. Wash mask, tubing, change filters, and fill reservoir as needed. F/U with PCP re: HTN and T2DM. Continue 400mg PO magnesium and B6 200mg daily at night. Coding Level of Care Code Est Pt Level 4 (84685) Complex EM visit Add On G2211 Diagnoses Primary insomnia F51.01 Insomnia type: primary Obstructive sleep apnea G47.33 Intractable chronic cluster headache G44.021 Headache chronicity pattern: chronic headache Intractability: intractable Time Spent (min) 30
[2024-11-21 15:21] VITALS: BP 148/98; PULSE 86; BMI 30.8
== END 2024-11-21 16:22 | disposition home or self-care (01) ==
LOC: HO.HSMS 15:11
PROVIDERS: PCP Internal Medicine; Visit Provider Physician Assistant Medical
DX: F51.01 Primary insomnia (principal); G47.33 Obstructive sleep apnea (adult) (pediatric); G44.021 Chronic cluster headache, intractable
CPT/HCPCS: 99214

== ENCOUNTER → 2024-11-21 15:10 | Outpatient (BNVA) | payer OTHER, SELFPAY | PROVIDERS: PCP Internal Medicine; Visit Provider Physician Assistant Medical ==

== ENCOUNTER → 2024-12-17 19:30 | Outpatient (BNV) | payer OTHER, SELFPAY | PROVIDERS: PCP Physician Assistant Medical; Visit Provider Psychiatry & Neurology Neurology | DX: G47.33 Obstructive sleep apnea (adult) (pediatric) (principal) | CPT/HCPCS: 95810 ==

== ENCOUNTER → 2024-12-17 19:30 | Outpatient (REF) | payer OTHER, SELFPAY | LOC: HO.SL 19:30 | PROVIDERS: PCP Physician Assistant Medical; Visit Provider Physician Assistant Medical | DX: G47.33 Obstructive sleep apnea (adult) (pediatric) (principal); F51.01 Primary insomnia; Z79.899 Other long term (current) drug therapy | CPT/HCPCS: 95810; 95811 ==

== ENCOUNTER 2025-01-07 11:30 | Outpatient (AMB) | payer OTHER, SELFPAY ==
--- NOTE | 2025-01-07 11:36 | AM.OFFWIN_ITS ---
Intake Vital Signs 01/07/25 11:37 Height 5 ft 5 in Weight 197 lb BMI 32.8 BP 144/80 H Blood Pressure Location Lt brachial Position Sitting Pulse 89 Pulse Source Pulse Oximeter Temp 98.2 F Temp Source Oral Pulse Oximetry (%) 98 Oxygen Delivery Method Room Air Intake Visit Reasons: EPHigh BP concerns Intake Note: presents with concern for High blood pressure, denies dizziness, headaches and flushing Patient Tobacco Use Status: Never used Tobacco Allergies adhesive tape Allergy (Verified 01/07/25 11:37) Blister amoxicillin Adverse Reaction (Unknown, Verified 01/07/25 11:37) Abdominal Pain Medication List - Last Reconciled 01/07/25 by Sveta Johnson PA-C blood sugar diagnostic (FreeStyle Lite Strips) As directed to check glucose up to 3 times daily blood-glucose meter (FreeStyle Lite Meter kit) 3 times a day blood-glucose sensor (FreeStyle April 3 Sensor device) apply new sensor every 14 days as directed blood-glucose,plant cytologist,cont (FreeStyle April 3 [place]) as directed cholecalciferol (vitamin D3) 50 mcg PO DAILY fluticasone propionate 50 mcg/actuation 1 spray intranasal DAILY FreeStyle Lite Meter (blood-glucose meter) check fasting blood sugar before a meal As directed NS FreeStyle Lite Strips (blood sugar diagnostic) test blood sugar once a day NS [id number] C-Mn 500-400 mg (Glucosamine Chondroitin Maximum Strength) caps PO lancets (FreeStyle Lancets) As directed lancets (FreeStyle Lancets) Use as directed to monitor glucose up to 3 times daily loratadine (Claritin) 10 mg PO DAILY miscellaneous medical supply (Blood Pressure Cuff) As directed omeprazole 20 mg PO DAILY trazodone 50 mg PO BEDTIME Do you need a note to return to daycare/school/sports/work: No HPI HPI Comments History of Present Illness Details History - The patient is a 59-year-old female pr esenting with elevated blood pressure concerns. - Reports elevated blood pressure readin gs in clinical settings, suspected to be due to white coat hypertension, with home readings around/less than 130/80 mmHg. Denies dizziness or lightheadedness. - Experiences occasional headaches attri buted to allergies - Recently started on CPAP therapy for o bstructive sleep apnea, showing improvement. - History of diabetes mellitus, under ca re of a improvement specialist. - Advised to monitor blood pressure twic e daily and maintain a record for next appointment. - Recommended lifestyle modifications, i ncluding a low-salt diet and regular exercise, to manage blood pressure. - She is not a smoker Physical Exam General: Cooperative, healthy appearing, comfortable, no acute distress and well developed Orientation: Patient oriented x3 Limitations: No limitations Head: Normal to inspection Ears: Hearing grossly normal bilaterally Nose: Normal External nose present Face and sinus: Normal facial exam Mouth: normal, moist oral mucosa Eyes: Appearance normal, both eyes and all related structures Neck: Normal visual inspection and Yes full ROM Respiratory: Normal respiratory effort and able to speak in complete sentences. Skin: no rashes or lesions noted Neuro: Patient oriented x3 Extremities: moving all extremities normally PFSH Medical History Obstructive sleep apnea Hypersomnia Observed sleep apnea Controlled type 2 diabetes mellitus Menopausal symptoms Plantar fasciitis Heart murmur, systolic Right thyroid nodule Diabetes mellitus with hyperglycemia, without long-term current use of insulin Nontoxic multinodular goiter Thyroid nodule Insomnia Essential hypertension Barretts esophagus Hiatal hernia Vitamin D deficiency Elevated blood pressure reading Sleep difficulties Anxiety Surgical History Hx of knee surgery H/O partial thyroidectomy Hx of colonoscopy Hx of inguinal hernia repair History of Family History Mother Colon cancer Hypertension Myocardial infarct Mental health disorder Sleep apnea Other Thyroid disease [facility] Alcohol intake: current Patient Tobacco Use Status: Never used Tobacco e-Cigarette/Vaping Use: Never Used service: No Current occupational status: employed Review of Systems Const All systems reviewed & are unremarkable except as noted in HPI and below Physical Exam Vital Signs: Last Vital Signs Temp 98.2 F 01/07/25 11:37 Pulse 89 01/07/25 11:37 BP 144/80 H 01/07/25 11:37 Pulse Ox 98 01/07/25 11:37 Oxygen Delivery Method Room Air 01/07/25 11:37 BMI result Body Mass Index 32.8 Assessment & Plan Assessment & Plan (1) Elevated blood pressure reading in office with white coat syndrome, without diagnosis of hypertension: Code(s): R03.0 - Elevated blood-pressure reading, without diagnosis of hypertension Plan: Patient was informed and verbally consented to the use of an ambient scribe for clinic note documentation during this visit Elevated BP aparna secondary to White Coat syndrome - Monitor blood pressure at home to differentiate from true hypertension. Recommended monitoring her blood pressure twice a day and keeping a log and if she noticed it trends up over time or the parameters we discussed or if she has associated symptoms, she should return to the walk-in clinic. We also discussed obtaining a new PCP and I gave her the phone number for the [facility] office with the hopes that she will be able to establish care there rather quickly. Advised risk of stroke, kidney damage and other damage with elevated BP's/uncontrolled hypertension. - Lifestyle modifications recommended, including a low-salt diet and regular exercise. Coding Level of Care Code Est Pt Level 3 (19696) Diagnoses Elevated blood pressure reading in office with white coat syndrome, without diagnosis of hypertension R03.0
[2025-01-07 11:37] VITALS: BP 144/80; PULSE 89; TEMP 36.8; O2SAT 98; BMI 32.8
--- OUTSIDE RECORDS SUMMARY | 2025-01-07 12:35 | XMS_ITS | Clinical Summary ---
Author Organization [facility] Address [address] [place] [address] Care Team Providers Care Trackman Name Role Phone Pcp, No Primary Care [...] 71 01/01/2018 11:15 AM EDT Temperature 37.3 C (99.1 F) 01/01/2018 11:15 AM EDT Respiratory Rate 16 01/01/2018 11:15 AM EDT [...] 2024 Influenza Vaccine 01/31/2025 Insurance Care Teams Trackman Relationship Specialty Start Date End Date Pcp, No PCP - General General Medicine 01/01/18
--- OUTSIDE RECORDS SUMMARY | 2025-01-07 12:35 | XMS_ITS | Clinical Summary ---
Author Organization [facility] Address [address] [place] [phone] Phone Care Team Providers Care Offset Lithographic Press Setter Name Role Phone Betty Cuenca MD Primary [...] Active Active Problems No known active problems Surgical History Surgery Date Site/Laterality Comments SECTION, LOW TRANSVERSE HERNIA REPAIR Bilateral X2 THYROIDECTOMY Left PARTIAL KNEE SURGERY Right COLONOSCOPY Medical History Medical History Date Comments Hiatal hernia Asthma Inguinal hernia Diabetes mellitus (CMS/HCC V24, CMS/HCC V28) DIET CONTROLLED Family History Medical History Relation [...] 88 06/12/2024 1:09 PM EST Temperature 36.5 C (97.7 F) 06/12/2024 12:49 PM EST Respiratory Rate 20 06/12/2024 1:09 PM EST [...] Vaccine ( - 2023-2 5 season) 2024 Depression Screening 04/17/2024 HIV Screening 04/17/2024 Hepatitis C Screening 04/17/2024 Social Influencers of Health Screening 04/17/2024 Influenza Vaccine (#1) 2025 04/07/2020 DTaP,Tdap,and Td Vaccines (2 - Td or [...] age to complete this topic Meningococcal B Vaccine Aged Out No l onger eligible based on patient's age to complete this topic RSV Immunization Patients Under 20 months Aged Out No longer eligible b ased on patient's age to complete this topic Varicella Vaccines Aged Out No longer eligible based on patient's age to complete this topic Procedures Procedure Name Priority Date/Time Associated Diagnosis Comments COLONOSCOPY Routine 06/20/2024 1:41 PM EST from Last 3 Months or Most Recently Relevant to Health Maintenance Results * COLONOSCOPY (06/20/2024 1:41 PM EST) Anatomical Region Laterality Modality Endoscopy us Historical Provider GI~PROCEDURE ORDERABLES F inal Result from Last 3 Months or Most Recently Relevant to Health Maintenance Insurance [address] [place] [address] [facility] Care Teams Offset Lithographic Press Setter Relationship Specialty Start Date End Date Betty Cuenca MD [address] [facility] [place] [address] PCP - General Internal Medicine 06/12/24
== END 2025-01-07 12:16 | disposition home or self-care (01) ==
PROVIDERS: PCP Physician Assistant Medical; Visit Provider Physician Assistant
DX: R03.0 Elevated blood-pressure reading, without diagnosis of hypertension (principal)

== ENCOUNTER 2025-01-28 17:21 | Outpatient (AMB) | payer OTHER, SELFPAY ==
--- OUTSIDE RECORDS SUMMARY | 2025-01-28 17:23 | XMS_ITS | Clinical Summary ---
Author Organization [facility] Address [address] [place] [address] Care Team Providers Care Bessemer Regulator Name Role Phone Pcp, No Primary Care [...] 2024 Influenza Vaccine 01/31/2025 Insurance Care Teams Bessemer Regulator Relationship Specialty Start Date End Date Pcp, No PCP - General General Medicine 01/01/18
--- OUTSIDE RECORDS SUMMARY | 2025-01-28 17:23 | XMS_ITS | Clinical Summary ---
Author Organization [facility] Address [address] [place] [phone] Phone Care Team Providers Care Fringe Weaver Name Role Phone Betty Cuenca MD Primary [...] Vaccine ( - 2023-2 5 season) 2024 HIV Screening 04/17/2024 Hepatitis C Screening 04/17/2024 Social Influencers of Health Screening 04/17/2024 Depression Screening 07/03/2024 Influenza Vaccine (#1) 2025 04/07/2020 DTaP,Tdap,and Td [...] Relevant to Health Maintenance Insurance [address] [place] [address] [facility] Care Teams Fringe Weaver Relationship Specialty Start Date End Date Betty Cuenca MD [address] [facility] [place] [address] PCP - General Internal Medicine 06/12/24
--- NOTE | 2025-01-29 08:22 | A.OFFPC_ITS ---
Intake Visit Reasons: establish care(Previous [facility] patient) Allergies adhesive tape Allergy (Verified 01/07/25 11:37) Blister amoxicillin Adverse Reaction (Unknown, Verified 01/07/25 11:37) Abdominal Pain Tobacco use date assessed: 08/18/21 HPI HPI Comments History of Present Illness Details 59-year-old female wishes to discuss her medical health via [employer]. She is transferring her care from Dr. Cuenca. Patient reports that she has been recording elevated blood pressure at home. Her last blood pressure was around 150/80. She reports no symptoms of headaches or blurred vision. Compliant with other medications. She is not on any antihypertensives currently. [facility] Medical History Obstructive sleep apnea Hypersomnia Observed sleep apnea Controlled type 2 diabetes mellitus Menopausal symptoms Plantar fasciitis Heart murmur, systolic Right thyroid nodule Diabetes mellitus with hyperglycemia, without long-term current use of insulin Nontoxic multinodular goiter Thyroid nodule Insomnia Essential hypertension Barretts esophagus Hiatal hernia Vitamin D deficiency Elevated blood pressure reading Sleep difficulties Anxiety Surgical History Hx of knee surgery H/O partial thyroidectomy Hx of colonoscopy Hx of inguinal hernia repair History of Family History Mother Colon cancer Hypertension Myocardial infarct Mental health disorder Sleep apnea Other Thyroid disease Social History Housing: Condominium Alcohol intake: current Patient Tobacco Use Status: Never used Tobacco e-Cigarette/Vaping Use: Never Used service: No Current occupational status: employed Questionnaire Thrive Questionnaire Date Thrive assessed: 08/18/21 MARCY-7 AMB Questionnaire MARCY-7 Date MARCY - 7 assessed: 08/18/21 Source: Developed by Drs. Jeffry Lewis, Chana Delgado, Vinny Ferro and colleagues, with an educational rhea from [employer]. Physical exam (Primary Care) Tobacco/Smoking Status: Tobacco use Status Tobacco use date assessed 08/18/21 01/09/25 16:46 Patient Tobacco Use Status Never used Tobacco 01/09/25 16:46 e-Cigarette/Vaping Use Never Used 01/09/25 16:46 Thrive Assessment: Date of Thrive Assessment Date Thrive assessed 08/18/21 01/09/25 16:46 Telehealth Telehealth Telehealth Platform: [facility] Location of provider rendering services: practice address Patient Identification confirmed using: Name, : Yes Telehealth method: voice only Patient verbally consented to treatment: Yes Patient verbally consented to billing insurance company: Yes Patient informed of any privacy concerns related to visit: Yes Minutes spent on Phone/Video with Pt.: 15 Coding Level of Care Code Tele Est Pt Level 4 (12993) Complex EM visit Add On G2211 Diagnoses Essential hypertension I10 Assessment & Plan Assessment & Plan (1) Essential hypertension: Code(s): I10 - Essential (primary) hypertension Category: Medical Plan: Enalapril at 5 mg a day has been added. Blood work has been ordered. Patient was encouraged to make a follow-up appointment in the office in 3 weeks. Her mammogram record from [facility] has to be obtained. Patient reports she had her last colonoscopy at [facility] the date has to be ascertained. Orders: Orders Complete Blood Count no Diff Today E11.9 - Type 2 diabetes mellitus without complications, I10 - Essential (primary) hypertension Basic Metabolic Panel Today E11.9 - Type 2 diabetes mellitus without complications, I10 - Essential (primary) hypertension UA and rflx microscopic Today E11.9 - Type 2 diabetes mellitus without complications, I10 - Essential (primary) hypertension Thyroid Stimulating Hormone Today E11.9 - Type 2 diabetes mellitus without complications, I10 - Essential (primary) hypertension Lipid Panel Today E11.9 - Type 2 diabetes mellitus without complications, I10 - Essential (primary) hypertension Liver Panel Today E11.9 - Type 2 diabetes mellitus without complications, I10 - Essential (primary) hypertension Hemoglobin A1c Today E11.9 - Type 2 diabetes mellitus without complications, I10 - Essential (primary) hypertension Medications: New enalapril maleate 5 mg PO DAILY 30 tabs 1RF
== END 2025-01-29 08:42 | disposition home or self-care (01) ==
LOC: HO.HMCSH 17:21
PROVIDERS: PCP Internal Medicine; Visit Provider Internal Medicine
DX: I10 Essential (primary) hypertension (principal)

== ENCOUNTER 2025-03-19 07:14 | Outpatient (REF) | payer OTHER, SELFPAY ==
--- OUTSIDE RECORDS SUMMARY | 2025-03-19 07:16 | XMS_ITS | Clinical Summary ---
Author Organization [facility] Address [address] [place] [phone] Phone Care Team Providers Care Design Maker Name Role Phone Betty Cuenca MD Primary Care Provider [phone] Allergies Active Allergy Reactions Criticality Noted Date [...] 2016 Zoster Vaccines (1 of 2) 2016 HIV Screening 04/17/2024 Hepatitis C Screening 04/17/2024 Social Influencers of Health Screening 04/17/2024 Depression Screening 07/03/2024 COVID-19 Vaccine (1 - 2023-2 5 season) 2025 Influenza Vaccine (#1) 2025 04/07/2020 DTaP,Tdap,and Td Vaccines (2 - Td or Tdap) 02/16/2027 02/16/2017 Colorectal Cancer Screening: Colonoscopy 06/20/2034 06/20/2024, 06/12/2024 RSV Immunization Adult Patients (1 - 1-dose 75+ series) 2041 HIB Vaccines Aged Out No longer eligi [...] PM EST) Anatomical Region Laterality Modality Endoscopy Historical Provider GI~PROCEDURE ORDERABLES F inal Result from Last 3 Months or Most Recently Relevant to Health Maintenance Insurance [address] [place] [address] Care Teams Design Maker Relationship Specialty Start Date End Date Betty Cuenca MD [address] [place] [address] PCP - General Internal Medicine 06/12/24
--- OUTSIDE RECORDS SUMMARY | 2025-03-19 07:16 | XMS_ITS | Clinical Summary ---
Author Organization [facility] Address [address] [place] [address] Care Team Providers Care Armature Inspector Name Role Phone Pcp, No Primary Care [...] Vaccine (1 of 2) 2016 Influenza Vaccine 01/31/2025 COVID-19 Vaccine ( - 2023- season) 2025 Insurance [facility] Care Teams Armature Inspector Relationship Specialty Start Date End Date Pcp, No PCP - General General Medicine 01/01/18
[2025-03-19 10:08] LABS: Appearance Urine Cloudy; Glucose Urine UA Negative (Negative); PH 5.5 (5.0-9.0); Specific Gravity - Urine 1.020 (1.005-1.025); UMIC TRIGGER UA YES
[2025-03-19 10:38] LABS: Hematocrit 39.5 % (37.0-47.0); Hemoglobin 13.1 g/dl (12.0-16.0); Hemoglobin A1C 211.7272 umol/L; Mean Corpuscular HGB Conc 33.2 g/dl (31.0-35.0); Mean Corpuscular Hemoglobin 28.5 pg (27.0-33.0); Mean Corpuscular Volume 86.1 fL (80.0-98.0); NRBC Abs Auto 0.000 X10*3/uL (0.0-0.012); NRBC Pct Auto 0.0 /100WBC (0.0-0.2); Platelet Count 192 X10*3/uL (160-400); Red Blood Count 4.59 X10*6/uL (4.20-5.50); Total Hemoglobin (HGBA1C) 3415.6590 umol/L; White Blood Count 5.6 X10*3/uL (4.8-10.8)
[2025-03-19 10:48] LABS: Alanine Aminotransferase 34 U/L (0-31); Albumin Level 4.2 g/dL (3.5-5.0); Alkaline Phosphatase 80 U/L (39-117); Anion Gap 9 (12-20); Aspartate Amino Transferase 33 U/L (5-31); Blood Urea Nitrogen 13 mg/dL (9-16); Calcium 9.0 mg/dL (8.4-10.2); Carbon Dioxide 23 mmol/L (22-29); Chloride 108 mmol/L (96-108); Cholesterol 150 mg/dL (<200); Estimated Glomerular Filt Rate > 60; HDL Cholesterol 56 mg/dL (>40); Potassium 3.9 mmol/L (3.3-5.1); Sodium 136 mmol/L (135-145); Total Protein 7.2 g/dL (6.5-8.0); Triglycerides 55 mg/dL (<150)
[2025-03-19 11:08] LABS: Thyroid Stimulating Hormone 1.33 uIU/mL (0.32-4.0)
== END 2025-03-19 07:15 | disposition home or self-care (01) ==
LOC: HO.HMGCLDS 07:14
PROVIDERS: PCP Internal Medicine; Visit Provider Internal Medicine
DX: I10 Essential (primary) hypertension (principal); E11.9 Type 2 diabetes mellitus without complications
CPT/HCPCS: 36415; 80048; 80061; 80076; 81001; 83036; 84443; 85027

== ENCOUNTER 2025-03-25 15:28 | Outpatient (AMB) | payer OTHER, SELFPAY ==
--- NOTE | 2025-03-25 15:31 | A.OFFPC_ITS ---
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 Accompanied by: Self / Same As Patient Allergies adhesive tape Allergy (Verified 03/25/25 17:16) Blister amoxicillin Adverse Reaction (Unknown, Verified 03/25/25 17:16) Abdominal Pain Medication List - Last Reconciled 03/25/25 by Manda Johnson PA-C blood sugar diagnostic (FreeStyle Lite Strips) As directed to check glucose up to 3 times daily blood-glucose meter (FreeStyle Lite Meter kit) 3 times a day blood-glucose sensor (FreeStyle April 3 Sensor device) apply new sensor every 14 days as directed blood-glucose,risk management intern,cont (FreeStyle April 3 Viola) as directed cholecalciferol (vitamin D3) 50 mcg PO DAILY enalapril maleate 10 mg PO DAILY fexofenadine (Tamie Allergy) 180 mg PO DAILY fluticasone propionate 50 mcg/actuation 1 spray intranasal DAILY FreeStyle Lite Meter (blood-glucose meter) check fasting blood sugar before a meal As directed NS FreeStyle Lite Strips (blood sugar diagnostic) test blood sugar once a day NS [id number] C-Mn 500-400 mg (Glucosamine Chondroitin Maximum Strength) caps PO lancets (FreeStyle Lancets) As directed lancets (FreeStyle Lancets) Use as directed to monitor glucose up to 3 times daily loratadine (Claritin) 10 mg PO DAILY metformin 500 mg PO DAILY miscellaneous medical supply (Blood Pressure Cuff) As directed omeprazole 20 mg PO DAILY trazodone 50 mg PO BEDTIME Tobacco use date assessed: 03/25/25 Dental Screening Dental Screen Date: 03/25/25 Did you have a dental visit in the last 12 months?: Yes HPI 3 weeks f/u HPI Details The patient is a 60-year-old female presenting for a three-month follow-up for high blood pressure management. Her blood pressure was previously noted to be elevated, and she has been monitoring it at home, with readings consistently between 140 and 150 mmHg. She was started on Anapril 5 mg, which is now being increased to 10 mg due to persistent hypertension. The patient has a known heart murmur, which was identified during a previous ultrasound in 2021. She denies any chest pain or dyspnea and has not been under the care of a forestry aid. A repeat ultrasound is planned to reassess the murmur. The patient has Type 2 Diabetes Mellitus, with a recent HbA1c of 7.8%. She was initially resistant to starting metformin but has since commenced the medication. She has experienced weight gain since starting CPAP therapy, which she attributes to improved sleep quality. The patient reports symptoms of vertigo, which she associates with low vitamin D levels. She experiences episodes of dizziness severe enough to prevent her from working. She prefers the Marybeth maneuver for relief and is seeking an appointment for this treatment. The patient has a history of vitamin D deficiency, for which she has not had recent laboratory evaluations. She also reports symptoms consistent with allergic rhinitis, exacerbated by current environmental allergens. Social History - Reports weight gain since starting CPA P therapy, attributed to improved sleep quality. [facility] Medical History (Updated 03/25/25 @ 17:21 by Manda Johnson PA-C) Allergic rhinitis BPPV (benign paroxysmal positional vertigo) Heart murmur Type 2 diabetes mellitus with hemoglobin A1c goal of less than 7.0% Obstructive sleep apnea Hypersomnia Observed sleep apnea Controlled type 2 diabetes mellitus Menopausal symptoms Plantar fasciitis Heart murmur, systolic Right thyroid nodule Diabetes mellitus with hyperglycemia, without long-term current use of insulin Nontoxic multinodular goiter Thyroid nodule Insomnia Essential hypertension Barretts esophagus Hiatal hernia Vitamin D deficiency Elevated blood pressure reading Sleep difficulties Anxiety Surgical History Hx of knee surgery H/O partial thyroidectomy Hx of colonoscopy Hx of inguinal hernia repair History of Family History Mother Colon cancer Hypertension Myocardial infarct Mental health disorder Sleep apnea Other Thyroid disease Social History Housing: Condominium Alcohol intake: current Patient Tobacco Use Status: Never used Tobacco e-Cigarette/Vaping Use: Never Used service: No Current occupational status: employed Cognitive needs: No Hearing needs: No Vision needs: Yes (rx glasses & contacts) Questionnaire PHQ-9 Over the last 2 weeks, how often have you been bothered by any of the following problems? 1. Little interest or pleasure in doing things: not at all 2. Feeling down, depressed, or hopeless: not at all 3. Trouble falling or staying asleep, or sleeping too much: not at all 4. Feeling tired or having little energy: not at all 5. Poor appetite or overeating: not at all 6. Feeling bad about yourself - or that you are a failure or have let yourself or your family down: not at all 7. Trouble concentrating on things, such as reading the newspaper or watching television: not at all 8. Moving or speaking so slowly that other people could have noticed. Or the opposite - being so fidgety or restless that you have been moving around a lot more than usual: not at all 9. Thoughts that you would be better off or of hurting yourself in some way: not at all Total score: 0 Depression Screening Interpretation: Negative Depression Screening Done: Yes 34264 - PHQ-9 Billing: Yes Source: Developed by Drs. Jeffry Lewis, Chana Delgado, Vinny Ferro and colleagues, with an educational rhea from [employer]. Thrive Questionnaire Date Thrive assessed: 03/25/25 I am a: Patient What is your living situation today?: I have a steady place to live Within the past 12 months, did the food you bought not last and you didn't have the money to get more?: Never true Within the past 12 months, did you worry whether your food would run out before you got money to buy more?: Never true Do you have trouble paying for medicines?: No Do you have trouble getting transportation to medical appointments?: No Do you have trouble paying your heating and electricity bill?: No Do you have trouble taking care of your child, family member or friend?: No Do you have trouble with day-to-day activities such as bathing, preparing meals, shopping, managing finances, etc.?: No Are you currently unemployed and looking for a job?: No Are you interested in more education?: No THRIVE Score: 0 AUDIT C Alcohol Use Questionnaire (AUDIT-C) 1. How often do you have a drink containing alcohol?: Monthly or less 2. How many drinks containing alcohol do you have on a typical day when you are drinking?: 1 or 2 Total Score: 1 Score Reviewed/Action Taken: No MARCY-7 AMB Questionnaire MARCY-7 Date MARCY - 7 assessed: 03/25/25 Feeling nervous, anxious, or on edge: 0 = Not at all Not being able to stop or control worryin = Not at all Worrying too much about different things: 0 = Not at all Trouble relaxin = Not at all Being so restless that it is hard to sit still: 0 = Not at all Becoming easily annoyed or irritable: 0 = Not at all Feeling afraid as if something awful might happen: 0 = Not at all Total MARCY-7 score (0-4 normal; 5-9 mild; 10-14 moderate; 15-21 severe): 0 Source: Developed by Drs. Jeffry Lewis, Chana Delgado, Vinny Ferro and colleagues, with an educational rhea from [employer]. MARCY-7 Assessment Billing MARCY-7 Assessment Tool: MARCY-7 Assessment 16462 Review of Systems Const Details: - Cardiovascular: Denies chest pain or dyspnea. - Neurological: Reports episodes of dizziness severe enough to prevent working. - Respiratory: Denies cough or shortness of breath. - Endocrine: Reports weight gain since starting CPAP therapy. - Allergic/Immunologic: Reports symptoms consistent with allergic rhinitis. All systems reviewed & are unremarkable except as noted in HPI and below Physical exam (Primary Care) Vital Signs: Last Vital Signs Temp 96.9 F 03/25/25 15:32 Pulse 89 03/25/25 15:32 Resp 16 03/25/25 15:32 BP 140/84 H 03/25/25 15:32 Pulse Ox 99 03/25/25 15:32 Oxygen Delivery Method Room Air 03/25/25 15:32 Care Plan Goal for BP management: <140/90 at Goal BMI result Body Mass Index 33.2 BMI Assessment/Plan discussion: High BMI High, discussed plan: lifestyle, weight reduction, dietary, physical activity, alcohol moderation and other Tobacco/Smoking Status: Tobacco use Status Tobacco use date assessed 03/25/25 03/25/25 15:34 Patient Tobacco Use Status Never used Tobacco 03/25/25 15:34 e-Cigarette/Vaping Use Never Used 03/25/25 15:34 PHQ-9: PHQ-9 Score PHQ-9: Total score 0 03/25/25 15:42 Depression Screening Interpretation: Negative Thrive Assessment: Date of Thrive Assessment Date Thrive assessed 03/25/25 03/25/25 15:41 Const Other: Appearance: Alert. Oriented X3. No acute distress. Head: Normal external exam. Normocephalic. Atraumatic. Eyes: Pupils are equal, round, and reactive to light. Extraocular movements intact. Conjunctiva and sclera normal. Eyelids normal. Ears: External auditory canal normal. Tympanic membranes normal. No fluid noted in the right ear. Throat: Pharynx normal. Uvula midline. Moist mucous membranes. Neck: Normal inspection. Neck supple. Full range of motion. No adenopathy. Thyroid Normal. No meningeal signs. No neck mass noted. Cardiovascular: Normal heart rate and rhythm. Heart sound normal. Murmur noted. Pulses normal throughout. Respiratory: No respiratory distress. Painless inspiration. Breath sounds normal. No wheezes/rales/rhonchi noted. Chest nontender. No accessory muscle usage noted or decreased air movement noted. Abdomen: Soft and nontender. Bowel sounds normal in all 4 quadrants. No distention noted. No organomegaly noted. No visible injury noted. Back: No costovertebral angle tenderness. Full range of motion noted. Skin: Skin warm and dry. Normal skin color. Normal skin turgor. No rashes/lesions/lacerations noted. Extremities: No lower extremity edema. Extremities exhibit normal range of motion. Extremities nontender. Neuro: Oriented X 3. No motor deficit. No sensory deficit. Reflexes normal. Symptoms of vertigo reported. Office Procedures Flu Questionnaire Does the patient have a severe egg allergy?: No Does the patient have severe life threatening allergies?: No Does the patient have a fever or illness today?: No Has the patient ever had Guillain-[place] Syndrome?: No Has the patient ever had any past reaction to a flu shot?: No Immunizations Fluarix [id number] (PF) 45 mcg (15 mcg x 3)/0.5 mL IM syringe Performing Provider: Manda Johnson PA-C Performing [facility] [place] [facility] Documented (not given) by: Ana Rosa Beasley CMA on 03/25/25 15:41 Reason Not Given: Patient Refused Results Reviewed Results Reviewed: - Labs: CBC normal, HbA1c 7.8%, liver enzymes mildly elevated at 33 and 34 (normal <31). Coding Level of Care Code Est Pt Level 4 (40514) Complex EM visit Add On G2211 Diagnoses Essential hypertension I10 Heart murmur, systolic R01.1 Type 2 diabetes mellitus with hemoglobin A1c goal of less than 7.0% E11.9 BPPV (benign paroxysmal positional vertigo) H81.10 Vitamin D deficiency E55.9 Allergic rhinitis J30.9 Additional Codes PHQ-9 - 86917 - PHQ-9 Billing: Yes ([id number]) MARCY-7 Assessment Billing - MARCY-7 Assessment Tool: MARCY-7 Assessment 01145 ([id number]) Assessment & Plan Assessment & Plan (1) Essential hypertension: Code(s): I10 - Essential (primary) hypertension Category: Medical Plan: The patient's blood pressure remains elevated, with home readings between 140 and 150 mmHg. The dosage of Anapril has been increased from 5 mg to 10 mg to better manage her hypertension. She is advised to monitor her blood pressure two hours post-medication intake and return for follow-up in 30 days. (2) Heart murmur, systolic: Code(s): R01.1 - Cardiac murmur, unspecified Category: Medical Plan: The patient has a known heart murmur, previously evaluated by ultrasound in 2021. A repeat ultrasound is scheduled to reassess the condition, given the time elapsed since the last evaluation. (3) Type 2 diabetes mellitus with hemoglobin A1c goal of less than 7.0%: Code(s): E11.9 - Type 2 diabetes mellitus without complications Category: Medical Plan: The patient's HbA1c is 7.8%, and she has started metformin despite initial reluctance. Weight gain has been noted since starting CPAP therapy, which may affect glycemic control. (4) BPPV (benign paroxysmal positional vertigo): Code(s): H81.10 - Benign paroxysmal vertigo, unspecified ear Category: Medical Plan: The patient experiences vertigo, which she associates with low vitamin D levels. She prefers the Marybeth maneuver for relief and is seeking an appointment for this treatment. (5) Vitamin D deficiency: Code(s): E55.9 - Vitamin D deficiency, unspecified Category: Medical Plan: The patient has a history of vitamin D deficiency, with no recent lab evaluations conducted. Vitamin D levels will be assessed to guide further management. (6) Allergic rhinitis: Code(s): J30.9 - Allergic rhinitis, unspecified Category: Medical Plan: The patient reports symptoms consistent with allergic rhinitis, exacerbated by current allergens. She is advised to try Tamie 180 mg, avoiding concurrent use with Claritin. Plan Plan Patient was informed and verbally consented to the use of an ambient scribe for clinic note documentation during this visit. 1. Essential Hypertension The patient's blood pressure remains elevated, with home readings between 140 and 150 mmHg. The dosage of Anapril has been increased from 5 mg to 10 mg to better manage her hypertension. She is advised to monitor her blood pressure two hours post-medication intake and return for follow-up in 30 days. 2. Heart Murmur The patient has a known heart murmur, previously evaluated by ultrasound in 2021. A repeat ultrasound is scheduled to reassess the condition, given the time elapsed since the last evaluation. 3. Type 2 Diabetes Mellitus The patient's HbA1c is 7.8%, and she has started metformin despite initial reluctance. Weight gain has been noted since starting CPAP therapy, which may affect glycemic control. 4. Vertigo The patient experiences vertigo, which she associates with low vitamin D levels. She prefers the Marybeth maneuver for relief and is seeking an appointment for this treatment. 5. Vitamin D Deficiency The patient has a history of vitamin D deficiency, with no recent lab evaluations conducted. Vitamin D levels will be assessed to guide further management. 6. Allergic Rhinitis The patient reports symptoms consistent with allergic rhinitis, exacerbated by current allergens. She is advised to try Tamie 180 mg, avoiding concurrent use with Claritin. During the visit, we discussed the management of the patient's hypertension, including increasing the Anapril dosage to 10 mg and the importance of monitoring blood pressure at home. We also reviewed her heart murmur, with plans for a repeat ultrasound to ensure stability. For her diabetes, we emphasized the role of metformin and the potential impact of weight gain from CPAP therapy. The patient expressed concerns about vertigo, and we discussed the Marybeth maneuver as a preferred treatment option. We also addressed her vitamin D deficiency and allergic rhinitis, recommending appropriate lab evaluations and medication adjustments. Orders: Orders TSH reflex Free T4 Today Z00.00 - Encounter for general adult medical examination without abnormal findings Vitamin B12 and Folate Today Z00.00 - Encounter for general adult medical examination without abnormal findings Microalbumin, Random (w Creat) Today E11.9 - Type 2 diabetes mellitus without complications Influenza [id number] Immunization Today Z23 - Encounter for immunization CA echo transthoracic complete Today R01.1 - Cardiac murmur, unspecified Magnesium Today Z00.00 - Encounter for general adult medical examination with out abnormal findings Vitamin D 25-OH Total Today Z00.00 - Encounter for general adult medical examination without abnormal findings UA CC w/rflx Micro + Cult Today Z00.00 - Encounter for general adult medical examination without abnormal findings PT Evaluation and Treatment Today H81.10 - Benign paroxysmal vertigo, u nspecified ear CT Cardiac Coronary Angio Today I10 - Essential (primary) hypertension, R01.1 - Cardiac murmur, unspecified Medications: New fexofenadine (Tamie Allergy) 180 mg PO DAILY 30 tabs 0RF Changed From enalapril maleate 5 mg PO DAILY 30 tabs 1RF To enalapril maleate 10 mg PO DAILY 30 tabs 0RF Patient Instructions: - Monitor blood pressure two hours after taking medication and record readings. - Return for follow-up in 30 days to reassess blood pressure and medication effectiveness. - Schedule an ultrasound for heart murmur evaluation. - Continue metformin as prescribed and monitor blood sugar levels. - Seek an appointment for the Marybeth maneuver to address vertigo. - Obtain lab tests for vitamin D, B12, and magnesium levels. - Use Tamie 180 mg for allergy symptoms, avoiding concurrent use with Claritin.
[2025-03-25 15:32] VITALS: BP 140/84; PULSE 89; RESP 16; TEMP 36.1; O2SAT 99; BMI 33.2
--- OUTSIDE RECORDS SUMMARY | 2025-03-25 18:19 | XMS_ITS | Clinical Summary ---
Author Organization [facility] Address [address] [place] [phone] Phone Care Team Providers Care Project Controls Specialist Name Role Phone Betty Cuenca MD Primary Care Provider [phone] Allergies Active Allergy Reactions Criticality Noted Date [...] Recently Relevant to Health Maintenance Insurance [address] [place] [address] Care Teams Project Controls Specialist Relationship Specialty Start Date End Date Betty Cuenca MD [address] [place] [address] PCP - General Internal Medicine 06/12/24
--- OUTSIDE RECORDS SUMMARY | 2025-03-25 18:19 | XMS_ITS | Clinical Summary ---
Author Organization [facility] Address [address] [place] [address] Care Team Providers Care Station Cleaning Porter Name Role Phone Pcp, No Primary Care [...] Vaccine ( - 2023- season) 2025 Insurance [facility] Care Teams Station Cleaning Porter Relationship Specialty Start Date End Date Pcp, No PCP - General General Medicine 01/01/18
== END 2025-03-25 16:30 | disposition home or self-care (01) ==
LOC: HO.HMCSH 15:28
PROVIDERS: PCP Internal Medicine; Visit Provider Physician Assistant Medical
DX: I10 Essential (primary) hypertension (principal); R01.1 Cardiac murmur, unspecified; E11.9 Type 2 diabetes mellitus without complications; H81.10 Benign paroxysmal vertigo, unspecified ear; E55.9 Vitamin D deficiency, unspecified; J30.9 Allergic rhinitis, unspecified; Z23 Encounter for immunization

== ENCOUNTER → 2025-03-25 15:28 | Outpatient (BNVA) | payer OTHER, SELFPAY | PROVIDERS: PCP Internal Medicine; Visit Provider Physician Assistant Medical | DX: I10 Essential (primary) hypertension (principal); R01.1 Cardiac murmur, unspecified; E11.9 Type 2 diabetes mellitus without complications; E55.9 Vitamin D deficiency, unspecified; J30.9 Allergic rhinitis, unspecified; H81.10 Benign paroxysmal vertigo, unspecified ear; Z28.21 Immunization not carried out because of patient refusal | CPT/HCPCS: 90471; 96127 ==

== ENCOUNTER 2025-03-26 14:37 | Outpatient (REF) | payer OTHER, SELFPAY ==
[2025-03-26 16:13] LABS: Appearance Urine Clear; Glucose Urine UA Negative (Negative); PH 5.5 (5.0-9.0); Specific Gravity - Urine <= 1.005 (1.005-1.025); UMIC TRIGGER UA YES
[2025-03-26 16:57] LABS: Magnesium 1.7 mg/dL (1.6-2.6)
--- OUTSIDE RECORDS SUMMARY | 2025-03-26 17:12 | XMS_ITS | Clinical Summary ---
Author Organization [facility] Address [address] [place] [address] Care Team Providers Care Solar Thermal Technician Name Role Phone Pcp, No Primary Care [...] Vaccine ( - 2023- season) 2025 Insurance [facility] Care Teams Solar Thermal Technician Relationship Specialty Start Date End Date Pcp, No PCP - General General Medicine 01/01/18
--- OUTSIDE RECORDS SUMMARY | 2025-03-26 17:12 | XMS_ITS | Clinical Summary ---
Author Organization [facility] Address [address] [place] [phone] Phone Care Team Providers Care Quality Control Clerk Name Role Phone Betty Cuenca MD Primary [...] Recently Relevant to Health Maintenance Insurance [address] [place] [address] Member Subscriber Plan / Payer (Ef fective 2018-Present) Name:Beatrice Zaidi Relation to Subscriber:Self Name:Beatrice Zaidi Payer ID:[id number] Type:Not on file Address: [address] [facility] [address] [place] [address] Care Teams Quality Control Clerk Relationship Specialty Start Date End Date Betty Cuenca MD [address] [place] [address] PCP - General Internal Medicine 06/12/24
[2025-03-26 17:24] LABS: Folate 10.0 ng/mL (> or = 4.0); Vitamin B12 481 pg/mL (200-900)
== END 2025-03-26 14:38 | disposition home or self-care (01) ==
LOC: HO.HMGCLDS 14:37
PROVIDERS: Internal Medicine; PCP Physician Assistant Medical; Visit Provider Physician Assistant Medical
DX: G47.33 Obstructive sleep apnea (adult) (pediatric) (principal); H81.13 Benign paroxysmal vertigo, bilateral; G47.30 Sleep apnea, unspecified; R45.4 Irritability and anger; E11.9 Type 2 diabetes mellitus without complications; Z00.00 Encounter for general adult medical examination without abnormal findings; Z13.21 Encounter for screening for nutritional disorder; Z99.89 Dependence on other enabling machines and devices
CPT/HCPCS: 36415; 81001; 81003; 82043; 82306; 82570; 82607; 82746; 83735; 84443

== ENCOUNTER 2025-03-26 15:16 | Outpatient (AMB) | payer OTHER, SELFPAY ==
--- NOTE | 2025-03-26 15:26 | A.OFFVIS_ITS ---
Vital Signs 03/26/25 15:27 Height 5 ft 5 in BP 136/92 H Blood Pressure Location Lt brachial Position Sitting Pulse 87 Pulse Source Pulse Oximeter Pulse Oximetry (%) 97 Oxygen Delivery Method Room Air Intake Visit Reasons: 4m follow up Intake Note: Patient presents follow up TAMEKA/migraine. Titration/Compliance in chart(Trialed 4-8cm, Stabilized at 8cm.(57/90days, >=4hrs-52%, Average Usage-3hrs 21min, Med Pressure-7.4, Med Leaks-0.0, AHI-1.1) Accompanied by: Self / Same As Patient Allergies adhesive tape Allergy (Verified 03/26/25 15:31) Blister amoxicillin Adverse Reaction (Unknown, Verified 03/26/25 15:31) Abdominal Pain HPI Comments Details: 60 year old female presents for a f/u of her titration study for TAMEKA. HST AH1 c/w 14 O2 desaturation to 79% and below 88% for 15min. She was started on APap therapy at [id number]. 12/2024 She was titrated and her breathing / oxygen stabilized at 8cmH20 TAMEKA compliance Report 2024 - 03/2025 Total use is 57/90days and >=4hrs-52% Avg daily use is 3hrs 21min Med Press 7.4cmH20 Median Leaks-0.0 and AHI-1.1 She washes her mask, rinses the hoses changes the filters, fills reservoir with water. 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 Her sleep has improved since she started using the cpap, she was unable to bring it with her when she was away for camping and noticed a marked difference in her sleep. She has anxiety about falling asleep. She admits to having parasomnias since her childhood with talking and sleep walking. She has tried Melatonin, Ambien, Lunesta, and Uniosm for sleep, even Trazadone doesn't help anymore. When she does not wear her cpap machine her partner will say she snores and gasps for air. She is now taking metformin, for her T2DM, and her BP is still elevated though improved since starting Enalapril, toay her bp is 136/92. She says her headaches are still about the same, but vertigo improves with the Marybeth maneuvers, she has BPPV, and still has fluid in her l. ear will f/u with PT next week for vertigo which makes her nauseous, denies vomiting. Her memory is stable, diet can be improved. Denies RLS has chronic R. knee pain and cramps.She worries a lot and bikes 30min daily as tolerable per knee pain. Headaches baseline: 2-3 times a week, and 8/10 in severity they last about 1 hour in the morning are r. sided occipital, pulsating and sometimes so severe they wake her up from sleep. She has photophobia/ phonophobia, sesitivity to smells, + vertigo, nausea and dizziness. She denies Auras. Vision is stable. [facility] Medical History (Updated 03/26/25 @ 19:11 by Emily Bailey PA-C) TAMEKA on CPAP Allergic rhinitis BPPV (benign paroxysmal positional vertigo) Heart murmur Type 2 diabetes mellitus with hemoglobin A1c goal of less than 7.0% Obstructive sleep apnea Hypersomnia Observed sleep apnea Controlled type 2 diabetes mellitus Menopausal symptoms Plantar fasciitis Heart murmur, systolic Right thyroid nodule Diabetes mellitus with hyperglycemia, without long-term current use of insulin Nontoxic multinodular goiter Thyroid nodule Insomnia Essential hypertension Barretts esophagus Hiatal hernia Vitamin D deficiency Elevated blood pressure reading Sleep difficulties Anxiety Surgical History Hx of knee surgery H/O partial thyroidectomy Hx of colonoscopy Hx of inguinal hernia repair History of Family History Mother Colon cancer Hypertension Myocardial infarct Mental health disorder Sleep apnea Other Thyroid disease Social History Housing: Condominium Alcohol intake: current Patient Tobacco Use Status: Never used Tobacco e-Cigarette/Vaping Use: Never Used service: No Current occupational status: employed Cognitive needs: No Hearing needs: No Vision needs: Yes (rx glasses & contacts) Physical Exam Vital Signs: Last Vital Signs Pulse 87 03/26/25 15:27 BP 136/92 H 03/26/25 15:27 Pulse Ox 97 03/26/25 15:27 Oxygen Delivery Method Room Air 03/26/25 15:27 Const General: cooperative, no acute distress and tired appearing Nutritional Appearance: average body habitus Orientation/consciousness: patient oriented x3 HEENT Face and sinus: Yes face symmetric Teeth and gingiva: other (M[place]ampti score is 4) Eyes Pupils: Equal, round and reactive pupils present Neck Neck: Yes full ROM Resp Effort & Inspection: normal respiratory effort and able to speak in complete sentences Neuro General: patient oriented x3 and moves all extremities Cranial nerves: Yes Facial sensation intact/muscles of mastication intact, Yes Equal, round and reactive pupils present, Yes Normal accommodation reflex present, Yes Nystagmus not present, Yes Normal facial strength present, Yes Midline tongue present, Yes Ability to bilaterally rotate head present and Yes Ability to bilaterally elevate shoulders present Gait exam (Neuro): Normal gait present Motor exam (neuro): 5/5 motor strength present throughout and Normal motor muscle tone present throughout Psych Appearance: grossly normal Thought process: Normal thought process present Thought content: Normal thought content present Results Reviewed Results Reviewed: HST AH1 c/w 14 O2 desaturation to 79% and below 88% for 15min. She was started on APap therapy at [id number]. 12/2024 She was titrated and her breathing / oxygen stabilized at 8cmH20 TAMEKA compliance Report 2024 - 03/2025 Total use is 57/90days and >=4hrs-52% Avg daily use is 3hrs 21min Med Press 7.4cmH20 Median Leaks-0.0 and AHI-1.1 She washes her mask, rinses the hoses changes the filters, fills reservoir with water. Assessment & Plan Assessment & Plan (1) Obstructive sleep apnea: Code(s): G47.33 - Obstructive sleep apnea (adult) (pediatric) Category: Medical (2) Benign paroxysmal positional vertigo due to bilateral vestibular disorder: Code(s): H81.13 - Benign paroxysmal vertigo, bilateral Category: Medical (3) Observed sleep apnea: Code(s): G47.30 - Sleep apnea, unspecified Category: Medical (4) Irritable mood: Code(s): R45.4 - Irritability and anger Category: Medical Plan TAMEKA on cpap therapy at 8cm H20 pt was recently titrated and did well on 8cmH20. Will start rx for 8cmH20 and monitor for compliance, compliance is reviewed as pt. continues to improve her use and is doing exceptionally well with use. Mood irritable with sleep difficulties start Amitriptyline 10mg po daily at bedtime. PT evaluation and treatment at [facility] for Marybeth Maneuvers, location is tbd by pt Labs reviewed with pt. and will f/u in 3 monhts. f/u in 3 months Orders: Orders PT Evaluation and Treatment Today H81.13 - Benign paroxysmal vertigo, bilateral Medications: New amitriptyline start 10mg po daily at bedtime. 10 mg PO BEDTIME 90 tabs 3RF mood irritable 3 months MDD 10mg R45.4 - Irritability and anger Patient Instructions: Sleep Hygiene provided: set a scheduled bedtime and wake time to help regulate the circadian rhythm and balance the release of pituitary hormones. Sleep in a dark room, temperatures below 68 degrees, and no devices n bed. Limit caffeinated products 6 hours prior to bed, and limit fluids 2-4 hours prior to bed. Gentle night yoga, diffusing essential oils, and playing soft music can be relaxing. Coding Level of Care Code Est Pt Level 4 (05218) Diagnoses Obstructive sleep apnea G47.33 Benign paroxysmal positional vertigo due to bilateral vestibular disorder H81.13 Observed sleep apnea G47.30 Irritable mood R45.4
[2025-03-26 15:27] VITALS: BP 136/92; PULSE 87; O2SAT 97
== END 2025-03-26 16:08 | disposition home or self-care (01) ==
LOC: HO.HSMC 15:17
PROVIDERS: PCP Internal Medicine; Visit Provider Physician Assistant Medical
DX: G47.33 Obstructive sleep apnea (adult) (pediatric) (principal); H81.13 Benign paroxysmal vertigo, bilateral; G47.30 Sleep apnea, unspecified; R45.4 Irritability and anger
CPT/HCPCS: 99214

== ENCOUNTER 2025-04-23 15:41 | Outpatient (AMB) | payer OTHER, SELFPAY ==
[2025-04-23 15:43] VITALS: BP 145/74; PULSE 77; TEMP 36.6; O2SAT 98; BMI 33.6
--- NOTE | 2025-04-23 15:43 | A.OFFPC_ITS ---
Vital Signs 04/23/25 15:43 04/23/25 16:14 Height 5 ft 5 in Weight 202 lb 2 oz BMI 33.6 BP 145/74 H 138/80 Blood Pressure Location Lt brachial Position Sitting Pulse 77 Pulse Source Pulse Oximeter Temp 97.8 F Temp Source Temporal Artery Scan Pulse Oximetry (%) 98 Oxygen Delivery Method Room Air Intake Visit Reasons: 1 month follow up Seed Cleaner Required: No Accompanied by: Self / Same As Patient Allergies adhesive tape Allergy (Verified 04/23/25 16:15) Blister amoxicillin Adverse Reaction (Unknown, Verified 04/23/25 16:15) Abdominal Pain Medication List - Last Reconciled 04/23/25 by Manda Johnson PA-C amitriptyline 10 mg PO BEDTIME amitriptyline 10 mg PO BEDTIME 3 months MDD 10mg blood sugar diagnostic (FreeStyle Lite Strips) As directed to check glucose up to 3 times daily blood-glucose meter (FreeStyle Lite Meter kit) 3 times a day blood-glucose sensor (FreeStyle April 3 Sensor device) apply new sensor every 14 days as directed blood-glucose,care nurse rn,cont (FreeStyle April 3 [place]) as directed cholecalciferol (vitamin D3) 50 mcg PO DAILY enalapril maleate 15 mg (1.5 x 10 mg) PO DAILY 90 days fexofenadine (Tamie Allergy) 180 mg PO DAILY fluticasone propionate 50 mcg/actuation 1 spray intranasal DAILY FreeStyle Lite Meter (blood-glucose meter) check fasting blood sugar before a meal As directed NS FreeStyle Lite Strips (blood sugar diagnostic) test blood sugar once a day NS [id number] C-Mn 500-400 mg (Glucosamine Chondroitin Maximum Strength) caps PO lancets (FreeStyle Lancets) As directed lancets (FreeStyle Lancets) Use as directed to monitor glucose up to 3 times daily metformin 500 mg PO DAILY miscellaneous medical supply (Blood Pressure Cuff) As directed omeprazole 20 mg PO DAILY Tobacco use date assessed: 04/23/25 Dental Screening Dental Screen Date: 04/23/25 Did you have a dental visit in the last 12 months?: Yes Was dental information given to patient?: Patient has dentist HPI 1 month follow up HPI Details The patient is a 60-year-old female presenting for a follow-up on blood pressure management. She has been experiencing elevated blood pressure readings at home, ranging between 130 and 140 mmHg, despite being on 10 mg of Enalapril. The patient reports a history of white coat syndrome, which may contribute to elevated readings in clinical settings. The patient also has a history of Type 2 Diabetes Mellitus, with a recent A1c level of 7.7%. She is currently on Metformin and has previously managed to reduce her A1c from 9% to 6.7% through dietary changes. The patient is hesitant to start injectable medications like Mounjaro despite its potential benefits for weight loss and glycemic control. Additionally, the patient reports having sleep apnea, which could potentially benefit from weight loss and improved glycemic control. [facility] Medical History TAMEKA on CPAP Allergic rhinitis BPPV (benign paroxysmal positional vertigo) Heart murmur Type 2 diabetes mellitus with hemoglobin A1c goal of less than 7.0% Obstructive sleep apnea Hypersomnia Observed sleep apnea Controlled type 2 diabetes mellitus Menopausal symptoms Plantar fasciitis Heart murmur, systolic Right thyroid nodule Diabetes mellitus with hyperglycemia, without long-term current use of insulin Nontoxic multinodular goiter Thyroid nodule Insomnia Essential hypertension Barretts esophagus Hiatal hernia Vitamin D deficiency Elevated blood pressure reading Sleep difficulties Anxiety Surgical History Hx of knee surgery H/O partial thyroidectomy Hx of colonoscopy Hx of inguinal hernia repair History of Family History Mother Colon cancer Hypertension Myocardial infarct Mental health disorder Sleep apnea Other Thyroid disease Social History Housing: Condominium Alcohol intake: current Patient Tobacco Use Status: Never used Tobacco e-Cigarette/Vaping Use: Never Used service: No Current occupational status: employed Cognitive needs: No Hearing needs: No Vision needs: Yes (rx glasses & contacts) Questionnaire PHQ-9 Over the last 2 weeks, how often have you been bothered by any of the following problems? 1. Little interest or pleasure in doing things: not at all 2. Feeling down, depressed, or hopeless: not at all 3. Trouble falling or staying asleep, or sleeping too much: not at all 4. Feeling tired or having little energy: not at all 5. Poor appetite or overeating: not at all 6. Feeling bad about yourself - or that you are a failure or have let yourself or your family down: not at all 7. Trouble concentrating on things, such as reading the newspaper or watching television: not at all 8. Moving or speaking so slowly that other people could have noticed. Or the opposite - being so fidgety or restless that you have been moving around a lot more than usual: not at all 9. Thoughts that you would be better off or of hurting yourself in some way: not at all Total score: 0 Depression Screening Interpretation: Negative Depression Screening Done: Yes 42367 - PHQ-9 Billing: Yes Source: Developed by Drs. Jeffry Lewis, Chana Delgado, Vinny Ferro and colleagues, with an educational rhea from [employer]. Thrive Questionnaire Date Thrive assessed: 04/23/25 I am a: Patient What is your living situation today?: I have a steady place to live Within the past 12 months, did the food you bought not last and you didn't have the money to get more?: Never true Within the past 12 months, did you worry whether your food would run out before you got money to buy more?: Never true Do you have trouble paying for medicines?: No Do you have trouble getting transportation to medical appointments?: No Do you have trouble paying your heating and electricity bill?: No Do you have trouble taking care of your child, family member or friend?: No Do you have trouble with day-to-day activities such as bathing, preparing meals, shopping, managing finances, etc.?: No Are you currently unemployed and looking for a job?: No Are you interested in more education?: No THRIVE Score: 0 AUDIT C Alcohol Use Questionnaire (AUDIT-C) 1. How often do you have a drink containing alcohol?: Monthly or less 2. How many drinks containing alcohol do you have on a typical day when you are drinking?: 1 or 2 Total Score: 1 Score Reviewed/Action Taken: No MARCY-7 AMB Questionnaire AMRCY-7 Date MARCY - 7 assessed: 04/23/25 Feeling nervous, anxious, or on edge: 0 = Not at all Not being able to stop or control worryin = Not at all Worrying too much about different things: 0 = Not at all Trouble relaxin = Not at all Being so restless that it is hard to sit still: 0 = Not at all Becoming easily annoyed or irritable: 0 = Not at all Feeling afraid as if something awful might happen: 0 = Not at all Total MARCY-7 score (0-4 normal; 5-9 mild; 10-14 moderate; 15-21 severe): 0 Source: Developed by Drs. Jeffry Lewis, Chana Delgado, Vinny Ferro and colleagues, with an educational rhea from [employer]. MARCY-7 Assessment Billing MARCY-7 Assessment Tool: MARCY-7 Assessment 30693 Review of Systems Const Details: - Cardiovascular: Reports elevated blood pressure readings at home. - Endocrine: Reports Type 2 Diabetes Mellitus with recent A1c of 7.7%. - Respiratory: Reports sleep apnea. All systems reviewed & are unremarkable except as noted in HPI and below Physical exam (Primary Care) Vital Signs: Last Vital Signs Temp 97.8 F 04/23/25 15:43 Pulse 77 04/23/25 15:43 BP 145/74 H 04/23/25 15:43 Pulse Ox 98 04/23/25 15:43 Oxygen Delivery Method Room Air 04/23/25 15:43 Care Plan Goal for BP management: <140/90 will increase enalapril to 15 mg daily and patient will return in 3 months BMI result Body Mass Index 33.6 BMI Assessment/Plan discussion: High BMI High, discussed plan: lifestyle, weight reduction, dietary, physical activity, alcohol moderation and other Tobacco/Smoking Status: Tobacco use Status Tobacco use date assessed 04/23/25 04/23/25 15:49 Patient Tobacco Use Status Never used Tobacco 04/23/25 15:49 e-Cigarette/Vaping Use Never Used 04/23/25 15:49 PHQ-9: PHQ-9 Score PHQ-9: Total score 0 04/23/25 15:58 Depression Screening Interpretation: Negative Thrive Assessment: Date of Thrive Assessment Date Thrive assessed 04/23/25 04/23/25 15:49 Const Other: Appearance: Alert. Oriented X3. No acute distress. Head: Normal external exam. Normocephalic. Atraumatic. Eyes: Pupils are equal, round, and reactive to light. Extraocular movements intact. Conjunctiva and sclera normal. Eyelids normal. Eyes noted to have multiple colors, including green, nader, and a little bit of brown. Throat: Pharynx normal. Uvula midline. Moist mucous membranes. Neck: Normal inspection. Neck supple. Full range of motion. Cardiovascular: Normal heart rate and rhythm. Heart sound normal. No murmurs noted. Pulses normal throughout. Blood pressure recorded at 138/80. Respiratory: No respiratory distress. Painless inspiration. Breath sounds normal. No wheezes/rales/rhonchi noted. Chest nontender. No accessory muscle usage noted or decreased air movement noted. Back: Full range of motion noted. Skin: Skin warm and dry. Normal skin color. Normal skin turgor. No rashes/lesions/lacerations noted. Extremities: Extremities exhibit normal range of motion. Neuro: Oriented X 3. No motor deficit. No sensory deficit. Reflexes normal. Office Procedures Flu Questionnaire Does the patient have a severe egg allergy?: No Does the patient have severe life threatening allergies?: No Does the patient have a fever or illness today?: No Has the patient ever had Guillain-Alamo Syndrome?: No Has the patient ever had any past reaction to a flu shot?: No Results AMB Hemoglobin A1c AMB Hemoglobin A1c 7.7 % Last Edit by Ana Rosa Beasley CMA on 04/23/25 16:0 9 Immunizations Fluarix [id number] (PF) 45 mcg (15 mcg x 3)/0.5 mL IM syringe Performing Provider: Manda Johnson PA-C [facility] Documented (not given) by: Ana Rosa Beasley CMA on 04/23/25 15:58 Reason Not Given: Patient Refused Results Reviewed Results Reviewed: Laboratory Last Values Hgb A1c (Clinic) 7.7 % (4.0-6.0) H 04/23/25 15:52 - Labs: Hemoglobin A1c measured at 7.7%. Coding Level of Care Code Est Pt Level 4 (17380) Complex EM visit Add On G2211 Diagnoses Essential hypertension I10 Type 2 diabetes mellitus with hemoglobin A1c goal of less than 7.0% E11.9 Obstructive sleep apnea G47.33 Additional Codes MARCY-7 Assessment Billing - MARCY-7 Assessment Tool: MARCY-7 Assessment 22181 ([id number]) PHQ-9 - 69896 - PHQ-9 Billing: Yes ([id number]) Assessment & Plan Assessment & Plan (1) Essential hypertension: Code(s): I10 - Essential (primary) hypertension Category: Medical Plan: The patient will increase the dose of Enalapril to 15 mg daily by taking one and a half tablets of the 10 mg dose to better control blood pressure. She will monitor her blood pressure at home and follow up in three months to assess the effectiveness of the dosage adjustment. (2) Type 2 diabetes mellitus with hemoglobin A1c goal of less than 7.0%: Code(s): E11.9 - Type 2 diabetes mellitus without complications Category: Medical Plan: The patient will continue with Metformin and focus on dietary improvements to manage her diabetes. She is advised to return in three months for re-evaluation of her A1c levels and to discuss potential further interventions if necessary. (3) Obstructive sleep apnea: Code(s): G47.33 - Obstructive sleep apnea (adult) (pediatric) Category: Medical Plan: The patient is informed that weight loss could potentially improve her sleep apnea symptoms. No immediate changes to her current management plan for sleep apnea were discussed. Plan Plan Patient was informed and verbally consented to the use of an ambient scribe for clinic note documentation during this visit. 1. Essential Hypertension The patient will increase the dose of Enalapril to 15 mg daily by taking one and a half tablets of the 10 mg dose to better control blood pressure. She will monitor her blood pressure at home and follow up in three months to assess the effectiveness of the dosage adjustment. 2. Type 2 Diabetes Mellitus The patient will continue with Metformin and focus on dietary improvements to manage her diabetes. She is advised to return in three months for re-evaluation of her A1c levels and to discuss potential further interventions if necessary. 3. Sleep Apnea The patient is informed that weight loss could potentially improve her sleep apnea symptoms. No immediate changes to her current management plan for sleep apnea were discussed. During the visit, we discussed the patient's current management of hypertension and diabetes. I recommended increasing the Anapronil dosage to 15 mg daily to better control her blood pressure and advised her to monitor her readings at home. For diabetes, we agreed to continue Metformin and focus on dietary improvements, with a follow-up planned in three months to reassess her A1c levels. We also discussed the potential benefits of weight loss for her sleep apnea, though no immediate changes were made to her current management plan. Orders: Orders Influenza [id number] Immunization Today Z23 - Encounter for immunization AMB Hemoglobin A1c Today Z13.9 - Encounter for screening, unspecified Medications: Changed From enalapril maleate 10 mg PO DAILY 90 tabs 1RF To enalapril maleate 15 mg (1.5 x 10 mg) PO DAILY 135 tabs 1RF 90 days Patient Instructions: - Increase Enalapril dose to 15 mg daily by taking one and a half tablets of the 10 mg dose. - Monitor blood pressure at home and report any significant changes. - Continue taking Metformin and focus on dietary improvements. - Return for follow-up in three months to reassess blood pressure and A1c levels.
[2025-04-23 16:14] VITALS: BP 138/80
--- OUTSIDE RECORDS SUMMARY | 2025-04-23 21:50 | XMS_ITS | Clinical Summary ---
Author Organization [facility] Address [address] [place] [phone] Phone Care Team Providers Care Shop Router Name Role Phone Betty Cuenca MD Primary [...] Safety Answer Date Record ed Physical Abuse Unrecognized value 06/12/2024 Verbal Abuse Unrecognized value 06/12/2024 Comments No Sex and Gender Information [...] Recently Relevant to Health Maintenance Insurance [address] [place] [address] Care Teams Shop Router Relationship Specialty Start Date End Date Betty Cuenca MD [address] [facility] [place] [address] PCP - General Internal Medicine 06/12/24
== END 2025-04-23 16:19 | disposition home or self-care (01) ==
LOC: HO.HMCSH 15:41
PROVIDERS: PCP Physician Assistant Medical; Visit Provider Physician Assistant Medical
DX: I10 Essential (primary) hypertension (principal); E11.9 Type 2 diabetes mellitus without complications; G47.33 Obstructive sleep apnea (adult) (pediatric); Z23 Encounter for immunization; Z13.9 Encounter for screening, unspecified

== ENCOUNTER → 2025-04-23 15:41 | Outpatient (BNVA) | payer OTHER, SELFPAY | PROVIDERS: PCP Physician Assistant Medical; Visit Provider Physician Assistant Medical | DX: E11.9 Type 2 diabetes mellitus without complications (principal); I10 Essential (primary) hypertension; G47.33 Obstructive sleep apnea (adult) (pediatric); Z79.84 Long term (current) use of oral hypoglycemic drugs; Z28.21 Immunization not carried out because of patient refusal | CPT/HCPCS: 83036; 90471; 96127 ==

== ENCOUNTER → 2025-05-07 14:53 | Outpatient (REF) | payer OTHER, SELFPAY ==
--- NOTE | 2025-05-07 15:01 | CA_ITS ---
Transthoracic Echocardiogram Patient (Last, First, Middle): Beatrice Zaidi M Gender: Female Date of : 1965 Age: 60 Procedure Date: 05/07/2025 Procedure Type: Transthoracic Echocardiogram Location: OP Height: 165.1 cm Weight: 91.63 kg BSA: 1.99 m2 Heart Rate: bpm BP: 142 / 88 mmHg Rayon Coner: TO Referring MD: Manda Johnson PA-C Seismic Computer: Robbi Talavera MD Symptoms: R01.1 - Cardiac murmur, unspecified Study Quality: Fair/Contrast ECG Rhythm: Sinus Conclusions: - 1. Normal LV ejection fraction of 60 65% with impaired relaxation filling pattern 2. Normal cardiac valvular Dopplers 3. Normal RV systolic pressure 4. No gross pericardial effusion Findings Procedure Information Contrast agent, definity, is being given per protocol without apparent complications. Left Ventricle Normal left ventricular size, thickness, and systolic function. The visually estimated ejection fraction is between 60-65%. There is no dynamic left ventricular outflow tract obstruction. Spectral Doppler is indicative of an impaired relaxation filling pattern. E/E prime ratio is between 8 and 15 consistent with indeterminate filling pressures. There is mild septal asymmetric hypertrophy. Right Ventricle Normal right ventricular cavity size and systolic function. Atria Both atria are normal in size. There is no evidence of interatrial shunt. Aortic Valve The aortic valve structure and function is likely normal. There is no aortic valve stenosis. There is no aortic valve regurgitation. Mitral Valve Likely normal mitral valve structure and function. There is trace mitral valve regurgitation. There is no mitral valve stenosis. Pulmonic Valve The pulmonic valve was not well visualized. Tricuspid Valve Likely normal tricuspid valve structure and function. There is trace tricuspid valve regurgitation. The right ventricular systolic pressure is normal. The right ventricular systolic pressure is 20 mmHg. Normal right atrial pressure. There is no evidence of pulmonary hypertension. Great Vessels All visible segments of the aorta are normal in size. The pulmonary artery was not well visualized. There is no dilatation of the ascending aorta measuring 3.40 cm. Venous The inferior vena cava is normal in size and collapses greater than 50% with inspiration. Pericardium/Pleural There is no evidence of pericardial effusion. Prior Study Comparison No significant change compared to prior study dated: 09/28/2021. Measurements 2D Linear Measurements IVSd: 1.29 0.6-0.9/0.6-1.0 cm LVIDd: 4.16 3.9-5.3/4.2-5.9 cm LVIDd Index: 2.09 2.4-3.2/2.2-3.1 cm/m2 LVIDs: 2.34 2.0-3.6 cm LVPWd: 0.99 0.7-1.1 cm LA Diam: 4.00 2.7-3.8/3.0-4.0 cm LAIDs Index: 2.01 1.5-2.3 cm/m2 LV Mass: 203.42 67-162/88-224 g LV Mass Index: 102.22 43-95/49-115 g/m2 LVOT Diam: 2.10 3.0+(-)1.3 cm 2D Systolic Function EF 4C: 67.40 >55% EF 2C: 60.70 >55% EF BiP: 64.20 >55% Mitral Valve MV Pk E: 0.92 MV PK A: 0.62 MV Decel Time: 219.00 E/A: 1.50 E'Lateral: 7.40 E'Medial: 5.11 E/E' Med: 18.00 E/E' Lat: 12.40 PHT: 64.00 MVA PHT: 3.44 Decel Ector: 4.21 Aortic Valve AoV Pk Ayush: 1.98 AoV Mn Ayush: 1.28 AoV VTI: 0.39 AoV Pk Grad: 16.00 Aov Mn Grad: 7.00 KIZZY Cont.VTI: 2.56 LVOT LVOT Pk Ayush: 1.34 LVOT Mn Ayush: 0.96 LVOT VTI: 0.29 LVOT Pk Grad: 7.00 LVOT Mn Grad: 4.00 LVOT Diam: 2.10 LVOT Area: 3.46 Diastolic Function MV Pk E: 0.92 MV Pk A: 0.62 E/A: 1.50 E'Medial: 5.11 E/E' Med: 18.00 E' Laterial: 7.40 E/E' Lat: 12.40 Right Ventricle TAPSE (mm): 25.40 TVS' Ayush: 11.50 Tricuspid Valve TR Pk Ayush: 2.09 TR Pk Grad: 17.00 RA Press: 3.00 RVSP: 20.00 Great Vessels Aorta Sinus of Valsalva: 2.93 2.0-3.5 cm Ao Asc: 3.40 2.1-3.4 cm Ao Arch: 3.20 Updated in Other Vendor System with Status of Final Robbi Talavera MD electronically signed on 05/08/2025 9:20:30 AM with status of Final
--- OUTSIDE RECORDS SUMMARY | 2025-05-07 18:00 | XMS_ITS | Clinical Summary ---
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
== END ==
LOC: HO.CARD 14:53
PROVIDERS: Visit Provider Physician Assistant Medical
DX: R01.1 Cardiac murmur, unspecified (principal)
CPT/HCPCS: 93306; Q9957

== ENCOUNTER → 2025-05-07 15:01 | Outpatient (BNV) | payer OTHER, SELFPAY | PROVIDERS: Visit Provider Internal Medicine Cardiovascular Disease | DX: I42.2 Other hypertrophic cardiomyopathy (principal); R01.1 Cardiac murmur, unspecified; I51.89 Other ill-defined heart diseases | CPT/HCPCS: 93306 ==